=== PATIENT | female | born 1990 | race Asian ===

== ENCOUNTER 2017-09-17 04:24 | Emergency (ER) | payer SELFPAY ==
--- NOTE | 2017-09-17 04:33 | PDOC ---
History of Present Illness - General Stated Complaint: WEAKNESS,DIZZINESS Time Seen by Provider: 09/17/17 04:33 History Source: Patient Exam Limitations: Language Barrier - History of Present Illness Initial Comments: 09/17/17 05:22 27 year old female swedish speaking from [place] with no pmhx presented with one week history of N , loss of appetite , light headedness, dizziness, abdominal pain and headache. The patient LMP is , she had positive test as out pt. The abdominal pain is 9/10 bilateral , comes and goes , last 5 min , tearing , associated with nausea and sob, pt feels very fatigue , out of energy , sleeping all the time. The headache is 7/10 , left temporal , pulsating worsen with . going to occipital area. she feel very warm but no fever , she reports joint pain as well. She feel dizzy when she get up as the room is spining around her. she has noticed one brownish discharge since the test. Pt denies any chest pain , palpitating ,urinary symptoms, or leg swelling . 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 FH: DM , DVT with the afther ,Mother with DM, BP Physical Exam: General: Well nourished in NAD Head: NC/At ENT: Corina ,EOMI, dry MM Neck: Supple Lungs: CTA B/L , no accessory muscle use , no wheezes or crackles Abdomen: soft , ND, lower abdomen tenderness, mid epigastric tenderness, tympanic to percussion , normo active BS . Legs: +2 DP, No edema , Neuro" no focal deficit, normal speech, normal gait Skin: warm and dry Work Up: CBC, CMP EKG Serum test UA Trans vaginal US IV fluids 2 L boluses Reglan for nausea Past History - Past Medical History Allergies/Adverse Reactions: Allergies Allergy/AdvReac Type Severity Reaction Status Date / Time No Known Allergies Allergy Verified 09/17/17 04:44 Home Medications: Ambulatory Orders Folic Acid 0.8 mg PO DAILY #180 capsule 09/17/17 Vit 108/Iron/Folic AC [ One Tablet] 1 each PO DAILY 180 Days # 180 tablet 09/17/17 ED Treatment Course - LABORATORY CBC & Chemistry Diagram: 09/17/17 05:17 09/17/17 05:17 *DC/Admit/Observation/Transfer Diagnosis at time of Disposition: Abdominal pain - Discharge Dispostion Disposition: HOME Condition at time of disposition: Good - Prescriptions Prescriptions: Folic Acid 0.8 mg PO DAILY #180 capsule Vit 108/Iron/Folic AC [ One Tablet] 1 each PO DAILY 180 Days # 180 tablet - Referrals Referrals: Huy Gamez MD [Staff Physician] - Martina Goodman MD [Staff Physician] - Ko Dai MD [Staff Physician] - - Patient Instructions Printed Discharge Instructions: Common Discomforts and Bodily Changes During Additional Instructions: Please make a follow up appointment with an hr associate in the next [address] hours[address] Contact information for Dr. Dai has been provided for you. We have also provided a referral to a primary care doctor for your non-obstetric care. Return to the Emergency Department for any new/worsening/concerning symptoms. - Post Discharge Activity
[2017-09-17] MEDS ORDERED: METOCLOPRAMIDE HCL INJECTION 10 MG/2 ML VIAL IVPUSH ONE (05:00)
[2017-09-17] MEDS ORDERED: SODIUM CHLORIDE 1,000 ML IV SCH (05:00)
[2017-09-17] MEDS ORDERED: ACETAMINOPHEN 1000 MG/100 ML VIAL (NON FORMULARY) IVPB ONE (05:00)
[2017-09-17] MEDS ORDERED: SODIUM CHLORIDE 1,000 ML IV STA (05:00)
[2017-09-17] MEDS ORDERED: ACETAMINOPHEN INJECTION 100 ML IVPB ONE (05:27)
[2017-09-17] MEDS ORDERED: METOCLOPRAMIDE HCL INJECTION 10 MG/2 ML VIAL ONE (05:27)
[2017-09-17 05:31] LABS: BASO % 0.7 % (0-2.0); HEMOGLOBIN 13.5 GM/dL (10.7-15.3); MCH 30.3 pg (25.7-33.7); MCHC 33.7 g/dl (32.0-36.0); MEAN CELL VOLUME 89.9 fl (80-96); MONO % 6.8 % (3.8-10.2); NEUT % 63.5 % (42.8-82.8); PLATELET COUNT 248 K/MM3 (134-434); RBC 4.45 M/mm3 (3.60-5.2); RDW 13.1 % (11.6-15.6); WHITE BLOOD COUNT 8.2 K/mm3 (4.0-10.0)
[2017-09-17 05:32] LABS: URINE APPEARANCE CLEAR; URINE BILIRUBIN NEGATIVE (<2.0 mg/dL); URINE BLOOD 1+ (NEGATIVE); URINE COLOR STRAW; URINE GLUCOSE (UA) NEGATIVE (NEGATIVE); URINE KETONE NEGATIVE (NEGATIVE); URINE LEUK ESTERASE NEGATIVE (NEGATIVE); URINE NITRITE NEGATIVE (NEGATIVE); URINE PROTEIN NEGATIVE (NEGATIVE); URINE UROBILINOGEN NEGATIVE mg/dL (0.2-1.0)
[2017-09-17 06:07] LABS: ANION GAP 12 (8-16); BILIRUBIN,TOTAL 0.6 mg/dL (0.2-1.0); BLOOD UREA NITROGEN 11 mg/dL (7-18); CALCIUM 8.7 mg/dL (8.5-10.1); CHLORIDE 101 mmol/L (98-107); CO2 25 mmol/L (21-32); CREATININE 0.5 mg/dL (0.55-1.02); GLUCOSE,RANDOM 84 mg/dL (74-106); LIPASE 141 U/L (73-393); POTASSIUM 3.7 mmol/L (3.5-5.1); SGOT/AST 15 U/L (15-37); SGPT/ALT 21 U/L (12-78); SODIUM 138 mmol/L (136-145); TOT PROT 7.3 g/dl (6.4-8.2)
[2017-09-17 06:08] LABS: ALK PHOS 36 U/L (45-117)
--- NOTE | 2017-09-17 06:36 | PDOC ---
Attending Attestation - Resident Resident Name: Geoff Child - ED Attending Attestation I have performed the following: I have examined & evaluated the patient, The case was reviewed & discussed with the resident, I agree w/resident's findings & plan, Exceptions are as noted - HPI HPI: 09/17/17 06:31 Ms Woods is a 27 yo F presenting to the ER due to nausea, vomiting, dizziness, weakness symptoms present intermittently for several days Worse today No vomiting No diarrhea Pt feels weak overall Had test 2 weeks ago it was (+) she has not followed up as of yet No prior pregnancies - Physicial Exam PE: 09/17/17 06:32 RRR CTA Lower abd tenderness to palpation Bilateral lower abdomen but Left > Right (+) voluntary guarding - Medical Decision Making 09/17/17 06:32 27 yo F presenting with nausea, weakness, abd pain DD: Nausea: morning sickness Abdominal pain: Ectopic , torsion, Free pelvic fluid Will do Labs US Tylenol for pain Monitor closely Attempted to call in US Was told that they come in at 7am
--- NOTE | 2017-09-17 07:23 | PDOC ---
*Physical Exam - Vital Signs Last Vital Signs Temp Pulse Resp BP Pulse Ox 98.2 F 80 18 112/60 97 09/17/17 06:56 09/17/17 06:56 09/17/17 06:56 09/17/17 06:56 09/17/17 06:56 - Physical Exam General Appearance: Yes: Nourished, Appropriately Dressed Neck: positive: Trachea midline, Supple Respiratory/Chest: positive: Lungs Clear Cardiovascular: positive: S1, S2 Gastrointestinal/Abdominal: positive: Normal Bowel Sounds, Soft, Hernia, Other ( gravid uterus, fundal height not appreciated) Musculoskeletal: negative: CVA Tenderness (R) Extremity: positive: Normal Capillary Refill, Normal Inspection Integumentary: positive: Normal Color, Dry, Warm Neurologic: positive: Fully Oriented, Alert ED Treatment Course - LABORATORY CBC & Chemistry Diagram: 09/17/17 05:17 09/17/17 05:17 - ADDITIONAL ORDERS Additional order review: Laboratory Results 09/17/17 09/17/17 09/17/17 05:17 05:17 05:17 Sodium 138 Potassium 3.7 Chloride 101 Carbon Dioxide 25 Anion Gap 12 BUN 11 Creatinine 0.5 L Creat Clearance w eGFR > 60 Random Glucose 84 Calcium 8.7 Total Bilirubin 0.6 AST 15 ALT 21 Alkaline Phosphatase 36 L Total Protein 7.3 Albumin 4.0 Lipase 141 Beta HCG, Quant 00608.5 Urine Color Straw Urine Appearance Clear Urine pH 5.0 Ur Specific [place] 1.008 Urine Protein Negative Urine Glucose (UA) Negative Urine Ketones Negative Urine Blood 1+ H Urine Nitrite Negative Urine Bilirubin Negative Urine Urobilinogen Negative Ur Leukocyte Esterase Negative 09/17/17 05:17 RBC 4.45 MCV 89.9 MCHC 33.7 RDW 13.1 MPV 9.0 Neutrophils % 63.5 Lymphocytes % 28.0 Monocytes % 6.8 Eosinophils % 1.0 Basophils % 0.7 - Medications Given in the ED: ED Medications Discontinued Medications Generic Name Dose Route Start Last Admin Trade Name Freq PRN Reason Stop Dose Admin Acetaminophen 1,000 mg 09/17/17 05:00 09/17/17 05:36 Ofirmev Injection - IVPB 09/17/17 05:01 1,000 mg ONCE ONE Administration Sodium Chloride 1,000 mls @ 1,000 mls/hr 09/17/17 05:00 09/17/17 05:36 Normal Saline - IV 09/17/17 05:59 1,000 mls/hr ASDIR STA Administration Metoclopramide HCl 10 mg 09/17/17 05:00 09/17/17 05:36 Reglan Injection - IVPUSH 09/17/17 05:01 10 mg ONCE ONE Administration Medical Decision Making - Medical Decision Making 09/17/17 07:16 Patient signed out by Dr. Child (Resident) and Dr. Durant (Attending) 27 y.o. @ female at estimated 5 weeks gestation with positive home test, limited pre-reynold care presents with 1 week h/o abdominal cramping, vaginal spotting. Bedside U/S shows IUP with no free fluid. Formal TVUS pending. 09/17/17 08:25 UA (-) protein, (+ 1) blood, (-) leukocyte esterase, (-) WBC 09/17/17 09:41 TVUS shows gestational sac 5 weeks 4 days; no pole c/w gestational age. Abdominal U/S shows possible hepatic steatosis -- likely fatty liver of . Clinical w/u has ruled out SAB, Ectopic , patient will require repeat TVUS and B-HCG in 48-72 hours. 09/17/17 18:05 Patient and patient's counseled to f/u with referred OB-PCA. Return precautions and discharged home. 09/17/17 18:08 I discussed the physical exam findings, ancillary test results and final diagnoses with the patient. I answered all of the patient's questions. The patient was satisfied with the care received and felt comfortable with the discharge plan and treatment plan. The patient will return to the Emergency Department with any new, persistent or worsening symptoms. *DC/Admit/Observation/Transfer Diagnosis at time of Disposition: Abdominal pain - Discharge Dispostion Disposition: HOME Condition at time of disposition: Good Admit: No - Prescriptions Prescriptions: Folic Acid 0.8 mg PO DAILY #180 capsule Vit 108/Iron/Folic AC [ One Tablet] 1 each PO DAILY 180 Days # 180 tablet - Referrals Referrals: Huy Gamez MD [Staff Physician] - Martina Goodman MD [Staff Physician] - Ko Dai MD [Staff Physician] - - Patient Instructions Printed Discharge Instructions: Common Discomforts and Bodily Changes During Additional Instructions: Please make a follow up appointment with an dairy farmworker in the next [address] hours[address] Contact information for Dr. Dai has been provided for you. We have also provided a referral to a primary care doctor for your non-obstetric care. Return to the Emergency Department for any new/worsening/concerning symptoms. - Post Discharge Activity
[2017-09-17 07:57] LABS: EPI CELLS FEW /HPF (FEW)
[2017-09-17 09:52] VITALS: BP 115/67; PULSE 67; TEMP 98.7
--- NOTE | 2017-09-17 16:59 | EKG ---
Test Reason : Blood Pressure : / mmHG Vent. Rate : 066 BPM Atrial Rate : 066 BPM P-R Int : 160 ms QRS Dur : 090 ms QT Int : 414 ms P-R-T Axes : 051 -06 038 degrees QTc Int : 434 ms NORMAL SINUS RHYTHM NORMAL ECG NO PREVIOUS ECGS AVAILABLE Confirmed by MD Lukas, Hamilton ([id number]) on 09/17/2017 4:58:37 PM Referred By: Confirmed By:Hamilton Gaytan MD
== END 2017-09-17 09:55 | disposition home or self-care (01) ==
LOC: JER 04:24
PROC: 3E033GC Introduction of Other Therapeutic Substance into Peripheral Vein, Percutaneous Approach (ICD-10-PCS; principal; 2017-09-17)
PROC: 3E033NZ Introduction of Analgesics, Hypnotics, Sedatives into Peripheral Vein, Percutaneous Approach (ICD-10-PCS; 2017-09-17)
DX: O26.891 Other specified pregnancy related conditions, first trimester (principal); O21.0 Mild hyperemesis gravidarum; Z3A.01 Less than 8 weeks gestation of pregnancy
CPT/HCPCS: 36415; 76705-TC; 76817-TC; 80053; 81003; 81015; 83690; 84702; 85025; 93005; 93010; 99284-25; J0131; J7030

== ENCOUNTER 2018-05-20 12:55 | Inpatient (IN) | payer OTHER ==
[2018-05-20 13:51] VITALS: BMI 28.3
[2018-05-20] MEDS ORDERED: BUTORPHANOL TARTRATE 1 MG/ML VIAL IVPB ONE (15:02)
[2018-05-20] MEDS ORDERED: PROMETHAZINE HCL 25 MG/1 ML VIAL IVPUSH ONE (15:02)
[2018-05-20] MEDS ORDERED: SODIUM PHOSPHATE/NA BIPHOS 133 ML ENEMA PR ONE (15:05)
--- NOTE | 2018-05-20 15:09 | HP ---
Past Medical History - Primary Care Physician PCP:: Martina Goodman - Admission Chief Complaint: 28 yrs 40.1 weeks iup , for induction of labor. h/o sono done on 05/09/18 is reported as 38.4 weeks,Vx, Ant Placenta, GANGA-12.3cm, efw 9'2 "-4130gm( 96%tile) , Macrosomia suspected .. BPP 01/29 . large for dates History of Present Illness: PNC at , [facility] wt gain 31lbs Serial sono for growth were done by MFM , noted. NT screen , AFP screen neg panel 02/04/18 : APos, Rubella immune, Rpr nr, Hbsag neg, Sickle neg, Hiv nr , CF screen neg, Lead neg 01/23/2018 : Pngt 138, Quantiferon neg , , Rpr nr, 04/24/2018 h/h12.2/38.0, plt 187. 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 Weeks Gestation by Dates: 40.1 ...EDC by Dates: 05/19/18 ...EDC by Sono: 05/19/18 Heme/Onc: No: Anemia Infectious Disease: No: HIV, STD's, Tuberculosis Psych: No: Addictions, Anxiety, Bipolar, Depression, Panic, Psychosis, Schizophrenia, Other - Past Surgical History Past Surgical History: Yes: Tonsillectomy (in child camacho) Hx Myomectomy: No Hx Transabdominal Cerclage: No Additional Surgical History: female circumcision - Smoking History Smoking history: Never smoked Have you smoked in the past 12 months: No - Alcohol/Substance Use Hx Alcohol Use: No History of Substance Use: reports: None Home Medications - Allergies Allergies/Adverse Reactions: Allergies Allergy/AdvReac Type Severity Reaction Status Date / Time No Known Allergies Allergy Verified 05/09/18 13:01 - Home Medications Home Medications: Ambulatory Orders Vit 108/Iron/Folic AC [ One Tablet] 1 each PO DAILY 180 Days # 180 tablet 09/17/17 Ferrous Sulfate [Iron] 325 mg PO DAILY 05/09/18 Ranitidine HCl [Zantac 75] 75 mg PO DAILY 05/09/18 Physical Exam - Maternity Vital Signs: Vital Signs Temperature 98.3 F 05/20/18 14:00 Pulse Rate 100 H 05/20/18 14:00 Respiratory Rate 20 05/20/18 14:00 Blood Pressure 138/84 05/20/18 14:00 O2 Sat by Pulse Oximetry (%) Selected Entries 05/20/18 13:29 Weight 170 lb Constitutional: Yes: Well Nourished, No Distress, Anxious Eyes: Yes: WNL HENT: Yes: WNL, Normocephalic Neck: Yes: WNL Cardiovascular: Yes: WNL, Regular Rate and Rhythm Lungs: Clear to auscultation Breast(s): Yes: WNL - Abdominal Exam/OB Fundal Height: 40 Number of Fetuses: Single Presentation: Vertex Contractions: No Monitor Mode: External Heart Rate (range): 140 Heart Rate Location: [facility] Category: I Accelerations: Uniform Decelerations: None - Vaginal Exam/OB Vaginal Bleediing: No Speculum Exam: No Dilatation (cm): close Effacement (%): 50 Amniotic Membrane Status: Intact Presentation: Vertex/Position Station: -3 - Physical Exam Musculoskeletal: Yes: WNL Extremities: Yes: WNL. No: Calf Tenderness Edema: Yes Edema: LLE: 1+, RLE: 1+ Deep Tendon Reflex Grade: Normal +2 ...Motor Strength: WNL Psychiatric: Yes: WNL, Alert, Oriented - Labs Lab Results: Laboratory Tests 05/20/18 05/20/18 05/20/18 14:30 14:30 14:30 WBC 7.1 Hgb 13.7 Hct 41.2 Plt Count 131 L D PT with INR 11.20 INR 0.95 PTT (Actin FS) 29.0 Sodium 135 L Potassium 3.6 Chloride 104 Carbon Dioxide 23 BUN 9 Creatinine 0.5 L Random Glucose 107 H Calcium 8.7 Blood Type Antibody Screen 05/20/18 14:30 WBC Hgb Hct Plt Count PT with INR INR PTT (Actin FS) Sodium Potassium Chloride Carbon Dioxide BUN Creatinine Random Glucose Calcium Blood Type A POSITIVE Antibody Screen Negative Problem List - Problems (1) Post-term , 40-42 weeks of gestation Code(s): O48.0 - POST-TERM (2) Encounter for elective induction of labor Code(s): Z34.90 - ENCNTR FOR SUPRVSN OF NORMAL , UNSP, UNSP TRIMESTER (3) Macrosomia affecting management of mother in third trimester, single gestation Code(s): O36.63X0 - MATERNAL CARE FOR EXCESS GROWTH, THIRD TRIMESTER, UNSP (4) Macrosomia affecting management of mother in third trimester Code(s): O36.63X0 - MATERNAL CARE FOR EXCESS GROWTH, THIRD TRIMESTER, UNSP Assessment/Plan 28 yrs , 40.1 weeks , suspected macrosomia , admitted for induction of labor Cervidil inserted at 3.15 PM 05/20/18. Trial vaginal delivery .
[2018-05-20] MEDS ORDERED: DEXTROSE 5%-LACTATED RINGERS 1,000 ML IV SCH (15:15)
[2018-05-20 15:32] LABS: BASO % 0.2 % (0-2.0); EOS % 0.5 % (0-4.5); HEMATOCRIT 41.2 % (32.4-45.2); HEMOGLOBIN 13.7 GM/dL (10.7-15.3); LYMPH % 18.2 % (8-40); MCH 30.4 pg (25.7-33.7); MCHC 33.2 g/dl (32.0-36.0); MEAN CELL VOLUME 91.4 fl (80-96); MEAN PLT VOLUME 10.1 fl (7.5-11.1); MONO % 6.3 % (3.8-10.2); NEUT % 74.8 % (42.8-82.8); PLATELET COUNT 131 K/MM3 (134-434); RDW 13.2 % (11.6-15.6); WHITE BLOOD COUNT 7.1 K/mm3 (4.0-10.0)
[2018-05-20 15:49] LABS: INR 0.95 (0.83-1.09); PROTHROMBIN TIME (PATIENT) 11.2 SEC (9.7-13.0)
[2018-05-20] MEDS ORDERED: DINOPROSTONE 10 MG VAGINAL SUPPOSITORY VG ONE (16:00)
[2018-05-20 16:07] LABS: ANION GAP 8 MMOL/L (8-16); BLOOD UREA NITROGEN 9 mg/dL (7-18); CALCIUM 8.7 mg/dL (8.5-10.1); CHLORIDE 104 mmol/L (98-107); CO2 23 mmol/L (21-32); CREATININE 0.5 mg/dL (0.55-1.3); GLUCOSE,RANDOM 107 mg/dL (74-106); POTASSIUM 3.6 mmol/L (3.5-5.1); SODIUM 135 mmol/L (136-145)
[2018-05-20] MEDS ORDERED: BUTORPHANOL TARTRATE 1 MG/ML VIAL ONE ×2 (17:35)
[2018-05-20] MEDS ORDERED: PROMETHAZINE HCL 25 MG/1 ML VIAL ONE (17:35)
[2018-05-20] MEDS ORDERED: ELECTROLYTE-148 SOLN 1,000 ML IV SCH (20:15)
--- NOTE | 2018-05-20 20:16 | PN ---
Progress Note (short form) - Note Progress Note: cervidil was inserted at 3.15 PM pt started having UC since 3.50 Pm , Pattern of uc were 1-1.5-2 min , lasting 20-30, 40 sec FHR 140 bpm cat-1 pt was unable to tolerate uc , crying .c/o pain & backache . IV fluids , started at 4.00 pm 5.40 PM Iv stadol 2 mg + Phenrgan 25 mg ivpb stat was given. UC continued same pattern, sometimes irritablity pattern , FHR cat-1 8.00 PM int os 2-3 cm/Ext os 3-4 cm /70%/NH vx -3/-2 Plan epidural labor analgesia Selected Entries 05/20/ 18:00 Temperature 99.0 F Pulse Rate 109 H Blood Pressure 127/61 Problem List - Problems (1) Post-term , 40-42 weeks of gestation Code(s): O48.0 - POST-TERM (2) Encounter for elective induction of labor Code(s): Z34.90 - ENCNTR FOR SUPRVSN OF NORMAL , UNSP, UNSP TRIMESTER (3) Macrosomia affecting management of mother in third trimester, single gestation Code(s): O36.63X0 - MATERNAL CARE FOR EXCESS GROWTH, THIRD TRIMESTER, UNSP (4) Macrosomia affecting management of mother in third trimester Code(s): O36.63X0 - MATERNAL CARE FOR EXCESS GROWTH, THIRD TRIMESTER, UNSP
[2018-05-20] MEDS ORDERED: FENTANYL/BUPIVACAINE/NS/PF - PCEA - 50 ML DISP.SYRIN EP ONE (20:24)
[2018-05-20] MEDS ORDERED: BUPIVACAINE HCL/PF 0.25% (2.5MG/ML) 10 ML VIAL ONE (20:25)
[2018-05-20] MEDS ORDERED: OXYTOCIN 20 UNITS in 0.9% NS 20 UNIT/1,000 ML INFUS.BAG IV ONE (21:43)
[2018-05-20] MEDS ORDERED: CITRIC ACID/SODIUM CITRATE 30 ML UNIT-DOSE CUP PO ONE (21:45)
--- NOTE | 2018-05-20 21:45 | PN ---
Progress Note (short form) - Note Progress Note: Anesthesiologist Dr Robledo 8.20 PM came to give epidural labor analgesia 8.[address] Robledo called me up & told , he tried but patient was moving , uncontrollable, hence he did not feel safe to continue epidural insertion attempt Pt screaming & crying , c/o headache , very anxious, BP 158/98 9.00PM cervidil removed Pt refuses to continue trial of labor for vaginal delivery , she requests for delivery by C/section I spoke to her & her , offered to leave alone, let labor progress naturally , Stadol + phenrgan can be repeated again for labor analgesia patient absolutely not in favor of vaginal delivery, she states she has big baby , she does not want to try . 930 pm patient is calm. irregular uc seen , fhr 145 cat-1 Temp 98.7, Pulse 91/min, BP 132/81 Imp ; Postterm 40.1 weeks, Suspected Macrosomia , Failed Induction of labor, requests for c/section Plan Delivery by Primary LFTC/section Problem List - Problems (1) Post-term , 40-42 weeks of gestation Code(s): O48.0 - POST-TERM (2) Encounter for elective induction of labor Code(s): Z34.90 - ENCNTR FOR SUPRVSN OF NORMAL , UNSP, UNSP TRIMESTER (3) Macrosomia affecting management of mother in third trimester, single gestation Code(s): O36.63X0 - MATERNAL CARE FOR EXCESS GROWTH, THIRD TRIMESTER, UNSP (4) Macrosomia affecting management of mother in third trimester Code(s): O36.63X0 - MATERNAL CARE FOR EXCESS GROWTH, THIRD TRIMESTER, UNSP
[2018-05-20] MEDS ORDERED: morphine SULFATE/Preservative Free 0.5 MG/ML (1cc Syringe) ONE (22:05)
[2018-05-20] MEDS ORDERED: ceFAZolin SODIUM 1 GM VIAL ONE ×2 (22:23)
[2018-05-20] MEDS ORDERED: ONDANSETRON 4 MG/2 ML VIAL IVPUSH PRN (22:24)
[2018-05-20] MEDS ORDERED: OXYTOCIN 10 UNITS/ML VIAL ONE ×2 (23:17)
[2018-05-20] MEDS ORDERED: oxyCODONE HCL 5 MG TABLET PO PRN (23:17)
[2018-05-20] MEDS ORDERED: METHYLERGONOVINE MALEATE 0.2 MG/1 ML AMP IM PRN (23:17)
[2018-05-20] MEDS: OXYTOCIN 20 UNITS in 0.9% NS 20 UNIT/1,000 ML INFUS.BAG IV SCH (23:30)
--- NOTE | 2018-05-20 23:38 | PN ---
Delivery - Delivery Section: Primary, Low Flap Transverse (indication postterm ( 40.1 weeks), macrosomia, failed induction of labor) Type of Anesthesia: Spinal EBL (cc): 1,200 (arzate output 150 ml vipin color ) Delivery, Single - Stages of Labor Date 1st Stage Initiatied: 05/20/18 Time 1st Stage Initiated: 15:50 Date of Delivery: 05/20/18 Time of Delivery: 22:28 Date Placenta Delivered: 05/20/18 Time Placenta Delivered: 22:30 Placenta: Yes: Spontaneous, Uterine Exploration - Condition of Infant Biological Inspector/Countersinker Balance Screw Hole Present: Yes Name: Cooper Ott Infant Gender: Male Weight: 9 lb 14 oz Position: Left, OP Total Hours ROM (Hrs/Mins): 3 min - 1 Minute Total Score: 9 5 Minutes Total Score: 9 - Feeding Plan Initial Plan: Exclusive throughout hospitalization Remarks - Remarks Remarks: 28 yrs , 40.1 weeks admitted for induction of labor due to suspected macrosomia GBS neg pnc at [address] [place] [address] 05/20/18 3.15 PM cervidil insertion stadol + phenrgan for labor analgesia failed attempt at epidural labor analgesia . 05/20/18-9.00 PM cervidil removed . patient refused to continue trial of labor . Intraop course uneventful
--- NOTE | 2018-05-20 23:44 | OP ---
Operative Note - Note: Operative Date: 05/20/18 Pre-Operative Diagnosis: postterm pregn (40.1 ) weeks, macrosomia, failed induction , requests for c/section Operation: Primary LowFlap Transverse C/section Findings: 10.28 PM Baby Boy , LOP position, 9/9, Wt 9'14", Ht 21" Both tubes & ovaries normal uterine atony immediate after delivery of baby was noted Director Of Physician Practices Dr Tru Gamboa was present in the room Surgeon: Martina Goodman Executive Services Administrator: Salvador López Anesthesiologist/FINANCE AND ADMINISTRATION MANAGER: Kade Robledo Anesthesia: Spinal Specimens Removed: cord segment for cord blood gas. cord blood. placenta Estimated Blood Loss (mls): 1,200 Drains, Volume Out (mls): 150 (arzate urine vipin color ) Fluid Volume Replaced (mls): 1,500 (Iv ancef 2 gm intraop )
[2018-05-20 23:54] LABS: ARTERIAL BLD GAS O2 SATURATION 13.6 % (90-98.9); ARTERIAL BLOOD GAS BASE EXCESS -0.5 meq/l (-2-2); ARTERIAL BLOOD GAS PO2 13.3 mmHg (80-100); ARTERIAL BLOOD GAS pH 7.27 (7.35-7.45)
[2018-05-20 23:57] LABS: VENOUS PC02 46.6 mmHg (38-52); VENOUS PH 7.35 (7.32-7.42)
[2018-05-20 23:58] LABS: VENOUS PO2 24.9 mmHg (28-48)
[2018-05-21 00:02] LABS: ARTERIAL BLOOD GAS PCO2 61.8 mmHg (35-45)
[2018-05-21] MEDS ORDERED: OXYTOCIN 20 UNITS in 0.9% NS 20 UNIT/1,000 ML INFUS.BAG IV ONE (00:07)
[2018-05-21] MEDS: OXYTOCIN 20 UNITS in 0.9% NS 20 UNIT/1,000 ML INFUS.BAG IV SCH (00:10)
[2018-05-21] MEDS ORDERED: IBUPROFEN 800 MG/8 ML IJ IVPB ONE (00:36)
[2018-05-21] MEDS: IBUPROFEN 800 MG/8 ML IJ IVPB PRN ×2 (00:47→08:34)
[2018-05-21] MEDS ORDERED: CARBOPROST TROMETHAMINE 250 MCG/ML AMPUL IM ONE (02:14)
[2018-05-21] MEDS ORDERED: oxyCODONE HCL 5 MG TABLET ONE (02:21)
--- NOTE | 2018-05-21 02:23 | PN ---
Progress Note (short form) - Note Progress Note: 2.15 AM , nurse called me to state pt is bleeding, trickling in spite of giving Methergine 0.2 mg IM at 1.30 AM I saw chucks were saturated, blood clots at introitus ut just below umblicus , appered to be firm Vaginal exam done , with beatadine vagina was full of blood clots, os was open clots were evacuated , approx 200 ml blood clots ut was empty now bimanual massage was given. IM Hemabate 250 mcg stat given. BP 139/76 mmhg , Pulse 90/min . Plan keep close observation Problem List - Problems (1) Post-term , 40-42 weeks of gestation Code(s): O48.0 - POST-TERM (2) Encounter for elective induction of labor Code(s): Z34.90 - ENCNTR FOR SUPRVSN OF NORMAL , UNSP, UNSP TRIMESTER (3) Macrosomia affecting management of mother in third trimester, single gestation Code(s): O36.63X0 - MATERNAL CARE FOR EXCESS GROWTH, THIRD TRIMESTER, UNSP (4) Macrosomia affecting management of mother in third trimester Code(s): O36.63X0 - MATERNAL CARE FOR EXCESS GROWTH, THIRD TRIMESTER, UNSP
[2018-05-21] MEDS: oxyCODONE HCL 5 MG TABLET PO PRN ×2 (02:27→14:31)
[2018-05-21] MEDS: CEFAZOLIN 1 GM in DEXTROSE 5%-WATER - 50 ML IVPB SCH ×3 (03:03→17:33)
[2018-05-21 08:18] LABS: BASO % 0.3 % (0-2.0); EOS % 0.1 % (0-4.5); HEMATOCRIT 31.3 % (32.4-45.2); HEMOGLOBIN 11.5 GM/dL (10.7-15.3); LYMPH % 10.9 % (8-40); MCHC 36.7 g/dl (32.0-36.0); MEAN CELL VOLUME 89.9 fl (80-96); MEAN PLT VOLUME 10.5 fl (7.5-11.1); MONO % 7.8 % (3.8-10.2); NEUT % 80.9 % (42.8-82.8); PLATELET COUNT 135 K/MM3 (134-434); RBC 3.48 M/mm3 (3.60-5.2); WHITE BLOOD COUNT 11.5 K/mm3 (4.0-10.0)
[2018-05-21] MEDS: FERROUS SO4 325 MG TABLET (FP) PO SCH ×2 (08:32→17:35)
--- NOTE | 2018-05-21 09:16 | OP ---
DATE OF OPERATION: 05/20/2018 PREOPERATIVE DIAGNOSIS: Post-term at 41 weeks, macrosomia, failed induction of labor, request for section. OPERATION: Primary low transverse section. SURGEON: Martina Goodman MD PERFUMER SURGEON: TAVO Simmons ANESTHESIOLOGIST: Kade Robledo MD REFRIGERATOR REPAIRMAN: Cooper Ruiz ____ ANESTHESIA: Spinal. FINDINGS: This is a 28-year-old, 40.1 weeks' who was diagnosed with macrosomia by the sonogram. Suspected 9.2 ounce baby on 2 week ago sonogram. Patient was induced with Cervidil. She went into labor. She had contractions every 1-2 minutes after the Cervidil insertion. Patient was very intolerant to the pain. She received Stadol and Phenergan. Two hours after the Cervidil insertion, the patient continued to have a similar pattern of contractions. heart rate was category 1. She had dilated up to 2-3 cm, so epidural was requested, but attempt at epidural failed. Patient refused to continue induction of labor. Cervidil was removed and she requested section. PROCEDURE: Patient was taken to the operating room table. Abdomen was shaved, prepped and Darnell catheter was placed. A spinal anesthesia was given. She was placed in the supine position. Abdomen was painted and draped in the usual manner. Then, the Pfannenstiel incision was made in the skin and subcutaneous tissue was entered. The anterior rectus sheath was incised transversely. Bleeding points were clamped and cauterized. Rectus muscle was from the rectus sheath. Parietal peritoneum was opened vertically. The lower flap of the bladder peritoneum was incised transversely. The lower uterine segment was incised transversely and extended. The baby boy was delivered at 10:28 p.m. from LOP position. Baby's Apgars were 9 and 9. Cord was clamped and cut. Immediate oral and nasal suction was done on the baby. The [employer] portal consultant was present in the room. Baby's weight was 9 pounds 14 ounces. Cord blood was collected. Placenta was completely removed with membranes. Uterine cavity was clean. The uterus was soft. Atony was noted. The Pitocin was continued. Uterine incision was closed in 2 layers. The first layer was a continuous locking with a Biosyn 0 suture. The second layer was a continuous intermittent locking with a Biosyn 0 suture. Hemostasis was checked and the bladder peritoneum was also closed with a Biosyn 0 suture. Both tubes and ovaries were normal. Irrigation was done. Then the sponge, instrument, and needle counts were correct. Closure of the abdomen was done. Parietal peritoneum was closed with 0 Vicryl suture. Muscles were approximated together with 0 Vicryl interrupted sutures. Then the anterior rectus sheath was closed with 0 Vicryl continuous sutures. Hemostasis was verified. Subcutaneous tissue was approximated with interrupted Vicryl 0 suture. Skin was approximated with remedios. Pressure dressing was given. Blood clots were removed from the vagina. The patient tolerated the procedure well. She was transferred to the recovery room in stable condition. She received IV Ancef 2 g operatively prior to the incision. ESTIMATED BLOOD LOSS: 1200 mL. URINE OUTPUT: 150 mL and was vipin colored. FLUID VOLUME: She received 1500 mL. Lachelle [id number] [id number]
[2018-05-21] MEDS ORDERED: ceFAZolin SODIUM 1 GM VIAL ONE ×2 (09:33→17:26)
[2018-05-21] MEDS ORDERED: DEXTROSE 5%-WATER - 50 ML IVPB ONE ×2 (09:33→17:26)
--- NOTE | 2018-05-21 09:45 | PN ---
Post Progress Note - Subjective Subjective: c/o pain , cramps grade -7/10 bleeding is under control arzate in situ Post Day: 1 Type of Delivery: Primary C/S Vital Signs: Vital Signs Temperature 98.1 F 05/21/18 06:00 Pulse Rate 72 05/21/18 06:00 Respiratory Rate 20 05/21/18 09:00 Blood Pressure 122/66 05/21/18 06:00 O2 Sat by Pulse Oximetry (%) 98 05/21/18 02:00 Breast Exam: Yes: Soft, Other (plans to breast feed). No: Engorged Uterus: Yes: Fundus Firm, Fundus below umbilicus, Non-tender Incision: Yes: Dressing dry and intact, [place] intact. No: Redness, Oozing Abdomen/GI: Yes: Abdomen soft, Abdominal Distention (midl, gaseous distention , bs active ), Tender, Tolerating PO (clear fluid ). No: Passing flatus Lochia: Yes: Rubra Lochia, amount: Moderate (no clots noted) Extremities: Yes: Calves non-tender (scd in situ ) Perineum: Yes: Intact Activity: Other (pt is not oob yet , arzate drain continuing ) - Labs Labs: CBC WBC 11.5 K/mm3 (4.0-10.0) H 05/21/18 07:10 RBC 3.48 M/mm3 (3.60-5.2) L 05/21/18 07:10 Hgb 11.5 GM/dL (10.7-15.3) 05/21/18 07:10 Hct 31.3 % (32.4-45.2) L D 05/21/18 07:10 MCV 89.9 fl (80-96) 05/21/18 07:10 MCH 33.0 pg (25.7-33.7) 05/21/18 07:10 MCHC 36.7 g/dl (32.0-36.0) H 05/21/18 07:10 RDW 13.0 % (11.6-15.6) 05/21/18 07:10 Plt Count 135 K/MM3 (134-434) 05/21/18 07:10 MPV 10.5 fl (7.5-11.1) 05/21/18 07:10 Absolute Neuts (auto) 9.3 K/mm3 (1.5-8.0) H 05/21/18 07:10 Neutrophils % 80.9 % (42.8-82.8) 05/21/18 07:10 Lymphocytes % 10.9 % (8-40) D 05/21/18 07:10 Monocytes % 7.8 % (3.8-10.2) 05/21/18 07:10 Eosinophils % 0.1 % (0-4.5) 05/21/18 07:10 Basophils % 0.3 % (0-2.0) 05/21/18 07:10 Nucleated RBC % 0 % (0-0) 05/21/18 07:10 Other Findings, Remarks: RS cta output 400 ml documented, now 900ml in arzate bag drained total intake 2100 ml Problem List - Problems (1) Post-term , 40-42 weeks of gestation Code(s): O48.0 - POST-TERM (2) Encounter for elective induction of labor Code(s): Z34.90 - ENCNTR FOR SUPRVSN OF NORMAL , UNSP, UNSP TRIMESTER (3) Macrosomia affecting management of mother in third trimester, single gestation Code(s): O36.63X0 - MATERNAL CARE FOR EXCESS GROWTH, THIRD TRIMESTER, UNSP (4) Failed induction of labor, delivered Code(s): O61.9 - FAILED INDUCTION OF LABOR, UNSPECIFIED (5) Encounter for assessment Code(s): Z39.2 - ENCOUNTER FOR ROUTINE FOLLOW-UP (6) Atonic hemorrhage Code(s): O72.1 - OTHER IMMEDIATE HEMORRHAGE (7) delivery due to maternal disorder, delivered, curr hospitaliz Code(s): O82 - ENCOUNTER FOR DELIVERY WITHOUT INDICATION; O99.89 - OTH DISEASES AND CONDITIONS COMPL PREG/CHLDBRTH Assessment/Plan pt is stable, bleeding underr control. Plan ct post op care encourage deep breathing, ambulation after arzate is taken out extremities isometric ex in bed
[2018-05-21] MEDS: ENOXAPARIN NA (PORCINE) 40 MG/0.4 ML DISP.SYRIN SQ SCH (09:54)
[2018-05-21] MEDS: PRENATAL VITAMINS W/ FOLIC ACID TABLET (FP) PO SCH (09:59)
[2018-05-21] MEDS: SIMETHICONE 80 MG TAB.CHEW (FP) PO PRN ×2 (11:55→18:49)
[2018-05-21] MEDS: ACETAMINOPHEN 325 MG TABLET (FP) PO PRN ×2 (11:55→18:49)
--- NOTE | 2018-05-21 13:46 | PN ---
Progress Note, Physician Chief Complaint: day 1 s/p C/S - Current Medication List Current Medications: Active Medications Acetaminophen (Tylenol -) 650 mg PO Q4H PRN PRN Reason: PAIN LEVEL 1-5 Last Admin: 05/21/18 11:55 Dose: 650 mg Bisacodyl (Dulcolax Suppository -) 10 mg RC PRN PRN PRN Reason: CONSTIPATION Diphenhydramine HCl (Benadryl Injection -) 25 mg IVPUSH Q4H PRN PRN Reason: Pruritis Diphtheria/Tetanus/Acell Pertussis (Boostrix -) 0.5 ml IM .ONCE ONE Stop: 05/22/18 10:01 Enoxaparin Sodium (Lovenox -) 40 mg SQ DAILY [facility] Last Admin: 05/21/18 09:54 Dose: 40 mg Ferrous Sulfate (Feosol -) 325 mg PO BIDWM [facility] Last Admin: 05/21/18 08:32 Dose: Not Given Cefazolin Sodium 1 gm/ (Dextrose) 50 mls @ 100 mls/hr IVPB Q8H-IV [facility] Stop: 05/22/18 01:59 Last Admin: 05/21/18 09:53 Dose: 100 mls/hr Oxytocin/Sodium Chloride (Normal Saline+20 Units Oxytocin -) 20 unit in 1,000 mls @ 125 mls/hr IV ASDIR [facility] Last Admin: 05/21/18 00:10 Dose: 125 mls/hr Ibuprofen (Motrin -) 600 mg PO Q4H PRN PRN Reason: PAIN LEVEL 1-3 Ibuprofen (Caldolor Injection -) 800 mg IVPB Q8H PRN PRN Reason: PAIN LEVEL 1-5 Stop: 05/21/18 23:16 Last Admin: 05/21/18 08:34 Dose: 800 mg Influenza Virus Vaccine Quadrival (Flulaval Quad [id number]) 60 mcg IM .ONCE ONE Stop: 05/23/18 10:01 Methylergonovine Maleate (Methergine Injection -) 0.2 mg IM Q4H PRN PRN Reason: Excessive Bleeding (L&D) Ondansetron HCl (Zofran Injection) 4 mg IVPUSH Q4H PRN PRN Reason: NAUSEA Oxycodone HCl (Roxicodone -) 5 mg PO Q4H PRN PRN Reason: PAIN LEVEL 4 - 6 Last Admin: 05/21/18 02:27 Dose: 5 mg Oxycodone HCl (Roxicodone -) 10 mg PO Q4H PRN PRN Reason: PAIN LEVEL 7 - 10 Multivit/Folic Acid/Iron ( Vitamins (Sjr) -) 1 tab PO DAILY [facility] Last Admin: 05/21/18 09:59 Dose: Not Given Senna/Docusate Sodium (Pericolace -) 2 tablet PO HS PRN PRN Reason: CONSTIPATION Simethicone (Mylicon -) 80 mg PO Q4H PRN PRN Reason: GAS Last Admin: 05/21/18 11:55 Dose: 80 mg - Objective Vital Signs: Vital Signs Temperature 98.3 F 05/21/18 09:39 Pulse Rate 72 05/21/18 09:39 Respiratory Rate 20 05/21/18 12:00 Blood Pressure 120/72 05/21/18 09:39 O2 Sat by Pulse Oximetry (%) 98 05/21/18 02:00 Labs: CBC, BMP 05/21/18 07:10 05/20/18 14:30 INR, PTT INR 0.95 (0.83-1.09) 05/20/18 14:30 Assessment/Plan s/p csection with spinal duramorph. C/o some pain, but controlled with medications. No ABUMAN,back pain, no other anesthetic issues/complications
[2018-05-21] MEDS: IBUPROFEN 600 MG TABLET (FP) PO PRN ×2 (14:32→18:49)
[2018-05-21] MEDS ORDERED: BISACODYL 10 MG SUPP.RECT RC PRN (23:18)
[2018-05-22] MEDS: SENNOSIDES/DOCUSATE COMBO (SENNA PLUS) TABLET (UD) PO PRN ×2 (00:26→20:46)
[2018-05-22] MEDS: oxyCODONE HCL 5 MG TABLET PO PRN ×3 (00:26→14:45)
[2018-05-22] MEDS: SIMETHICONE 80 MG TAB.CHEW (FP) PO PRN ×4 (00:26→20:42)
[2018-05-22] MEDS: IBUPROFEN 600 MG TABLET (FP) PO PRN ×4 (00:27→20:45)
[2018-05-22] MEDS: FERROUS SO4 325 MG TABLET (FP) PO SCH ×2 (08:12→17:06)
[2018-05-22] MEDS: ACETAMINOPHEN 325 MG TABLET (FP) PO PRN ×2 (08:12→20:42)
[2018-05-22] MEDS: ENOXAPARIN NA (PORCINE) 40 MG/0.4 ML DISP.SYRIN SQ SCH (09:28)
[2018-05-22] MEDS: PRENATAL VITAMINS W/ FOLIC ACID TABLET (FP) PO SCH (09:28)
--- NOTE | 2018-05-22 09:43 | PN ---
Post Progress Note Type of Delivery: Primary C/S Vital Signs: Vital Signs Temperature 98.7 F 05/22/18 08:27 Pulse Rate 90 05/22/18 08:27 Respiratory Rate 20 05/22/18 08:27 Blood Pressure 119/62 05/22/18 08:27 O2 Sat by Pulse Oximetry (%) 98 05/21/18 02:00 Uterus: Yes: Fundus below umbilicus Incision: Yes: Dressing dry and intact Abdomen/GI: Yes: Abdomen soft Lochia: Yes: Rubra Lochia, amount: Small Extremities: Yes: Calves non-tender Perineum: Yes: Intact Activity: Ambulating - Labs Labs: CBC WBC 11.5 K/mm3 (4.0-10.0) H 05/21/18 07:10 RBC 3.48 M/mm3 (3.60-5.2) L 05/21/18 07:10 Hgb 11.5 GM/dL (10.7-15.3) 05/21/18 07:10 Hct 31.3 % (32.4-45.2) L D 05/21/18 07:10 MCV 89.9 fl (80-96) 05/21/18 07:10 MCH 33.0 pg (25.7-33.7) 05/21/18 07:10 MCHC 36.7 g/dl (32.0-36.0) H 05/21/18 07:10 RDW 13.0 % (11.6-15.6) 05/21/18 07:10 Plt Count 135 K/MM3 (134-434) 05/21/18 07:10 MPV 10.5 fl (7.5-11.1) 05/21/18 07:10 Absolute Neuts (auto) 9.3 K/mm3 (1.5-8.0) H 05/21/18 07:10 Neutrophils % 80.9 % (42.8-82.8) 05/21/18 07:10 Lymphocytes % 10.9 % (8-40) D 05/21/18 07:10 Monocytes % 7.8 % (3.8-10.2) 05/21/18 07:10 Eosinophils % 0.1 % (0-4.5) 05/21/18 07:10 Basophils % 0.3 % (0-2.0) 05/21/18 07:10 Nucleated RBC % 0 % (0-0) 05/21/18 07:10 Assessment/Plan 28yo s/p PLTCS, POD#2 Routine care care OOB, ambulate D/C to home by POD#4 Mayuri Moran MD
[2018-05-22] MEDS ORDERED: DIPHTH,PERTUSS(ACELL),TET 0.5 ML DISP.SYRIN IM ONE (10:00)
[2018-05-23] MEDS: SIMETHICONE 80 MG TAB.CHEW (FP) PO PRN ×4 (03:56→19:52)
[2018-05-23] MEDS: ACETAMINOPHEN 325 MG TABLET (FP) PO PRN ×3 (03:56→19:52)
[2018-05-23] MEDS: IBUPROFEN 600 MG TABLET (FP) PO PRN ×4 (03:58→19:52)
[2018-05-23 07:23] LABS: BASO % 0.6 % (0-2.0); EOS % 2.2 % (0-4.5); HEMATOCRIT 29.9 % (32.4-45.2); HEMOGLOBIN 9.8 GM/dL (10.7-15.3); LYMPH % 20.9 % (8-40); MCH 30.6 pg (25.7-33.7); MCHC 32.9 g/dl (32.0-36.0); MEAN CELL VOLUME 92.9 fl (80-96); MEAN PLT VOLUME 9.4 fl (7.5-11.1); NEUT % 70.3 % (42.8-82.8); PLATELET COUNT 182 K/MM3 (134-434); RBC 3.21 M/mm3 (3.60-5.2); RDW 13.7 % (11.6-15.6); WHITE BLOOD COUNT 7.3 K/mm3 (4.0-10.0)
--- NOTE | 2018-05-23 08:02 | PN ---
Progress Note (short form) - Note Progress Note: pod 3 s/p c/s doing well, ambulating, voids ok, no excess vaginal bleeding CBC, BMP 05/20/18 14:30 Last Vital Signs Temp Pulse Resp BP Pulse Ox 98.3 F 83 18 128/72 98 05/22/18 22:00 05/22/18 22:00 05/22/18 22:00 05/22/18 22:00 05/21/18 02:00 abdomen soft, no distension, no cva incision dry, clean no calf tenderness plan ambulate, cbc
[2018-05-23] MEDS: FERROUS SO4 325 MG TABLET (FP) PO SCH ×2 (08:10→17:11)
[2018-05-23] MEDS: ENOXAPARIN NA (PORCINE) 40 MG/0.4 ML DISP.SYRIN SQ SCH (09:08)
[2018-05-23] MEDS: PRENATAL VITAMINS W/ FOLIC ACID TABLET (FP) PO SCH (09:08)
[2018-05-23] MEDS ORDERED: FLU VACCINE QUAD 60 MCG/0.5 ML (MDV 18-19) IM ONE (10:00)
[2018-05-23] MEDS: SENNOSIDES/DOCUSATE COMBO (SENNA PLUS) TABLET (UD) PO PRN (19:52)
[2018-05-24] MEDS: IBUPROFEN 600 MG TABLET (FP) PO PRN ×3 (02:45→13:48)
[2018-05-24] MEDS: SIMETHICONE 80 MG TAB.CHEW (FP) PO PRN ×3 (02:45→13:49)
[2018-05-24] MEDS: ACETAMINOPHEN 325 MG TABLET (FP) PO PRN ×3 (02:45→13:49)
[2018-05-24] MEDS: FERROUS SO4 325 MG TABLET (FP) PO SCH (09:00)
[2018-05-24] MEDS: PRENATAL VITAMINS W/ FOLIC ACID TABLET (FP) PO SCH (09:00)
[2018-05-24] MEDS: ENOXAPARIN NA (PORCINE) 40 MG/0.4 ML DISP.SYRIN SQ SCH (09:01)
[2018-05-24 10:53] VITALS: BP 125/72; PULSE 90; TEMP 97.8
--- NOTE | 2018-05-24 14:21 | DS ---
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 Vital Signs: Vital Signs Temperature 97.8 F 05/24/18 10:00 Pulse Rate 90 05/24/18 10:00 Respiratory Rate 16 05/24/18 10:00 Blood Pressure 125/72 05/24/18 10:00 O2 Sat by Pulse Oximetry (%) 98 05/21/18 02:00 Constitutional: Yes: Well Nourished Eyes: Yes: Conjunctiva Clear HENT: Yes: Atraumatic Neck: Yes: Supple Cardiovascular: Yes: Regular Rate and Rhythm Respiratory: Yes: Regular Gastrointestinal: Yes: Normal Bowel Sounds External Genitalia: Yes: Normal Vaginal Exam: Yes: Normal Cervix: Yes: Normal Uterus: Yes: Firm Wound/Incision: Yes: Clean/Dry, Well Approximated Neurological: Yes: Alert, Oriented ...Motor Strength: WNL Psychiatric: Yes: Alert, Oriented Labs: CBC, BMP 05/23/18 06:34 05/20/18 14:30 Delivery - Delivery Section: Primary, Low Flap Transverse (indication postterm ( 40.1 weeks), macrosomia, failed induction of labor) Type of Anesthesia: Spinal Episiotomy/Laceration: None EBL (cc): 1,200 Delivery, Single - Stages of Labor Date 1st Stage Initiatied: 05/20/18 Time 1st Stage Initiated: 15:50 Date of Delivery: 05/20/18 Time of Delivery: 22:28 Time Placenta Delivered: 22:30 Placenta: Yes: Spontaneous, Uterine Exploration - 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 Internship Present: Yes Name: David Bucio Infant Gender: Male Weight: 9 lb 14 oz Position: Left, OP Total Hours ROM (Hrs/Mins): 3 min - 1 Minute Total Score: 9 5 Minutes Total Score: 9 - [place] Feeding Plan Initial Plan: Exclusive throughout hospitalization Discharge Summary Reason For Visit: INDUCTION OF LABOR Current Active Problems Atonic hemorrhage (Acute) delivery due to maternal disorder, delivered, curr hospitaliz (Acute) Encounter for elective induction of labor (Acute) Encounter for assessment (Acute) Failed induction of labor, delivered (Acute) Macrosomia affecting management of mother in third trimester, single gestation ( Acute) Post-term , 40-42 weeks of gestation (Acute) Procedures: Principal: Primary Low Transverse Hospital Course: Routine post op care Condition: Stable - Instructions Diet, Activity, Other Instructions: Post Instructions DIET: Continue good diet high in protein, calcium, and iron rich foods. Drink at least eight (8) glasses of water daily in addition to other fluids. ct Regular diet MEDICATIONS: Continue vitamins and iron as previously directed. Motrin and Tylenol may be taken for minor discomfort. ACTIVITY: Mild to moderate exercise may be started in two (2) weeks. Take frequent rest periods. Resume normal activity after six (6) week check up. WOUND CARE OF OPERATIVE SITE: Continue use of perineal bottle until vaginal discharge stops. Keep area clean. Shower daily. Keep abdominal wound dry. Report any drainage or redness to physician. Tub baths, tampons and douches are not permitted for [address] Breast feeding & or Bottle feeding BREAST CARE: (For those that are not ): If engorgement occurs: Wear tight fitting bra. Take Tylenol or Motrin for pain. Apply cold packs (ice in bags to each breast ) FAMILY PLANNING: There are many control alternatives to pursue and they should be discussed at your first office visit. You may resume sexual activity after your six (6) week check up. (Remember, breast feeding is not a contraceptive) NEXT PHYSICIAN APPOINTMENT: Be certain to call for a one (1) week appointment, unless otherwise directed. rtc Saturday for removal of remedios, wound check with [facility] or got to Emergency Dept if you have any of the following: Heavy vaginal bleeding Painful urination Leg pain Unusual odor noted to vaginal bleeding High fever Red streaking noted on breast Regular Diet Follow up on Saturday05/27/2018 at 9AM to have your remedios removed call [facility] for appointment for in 6 weeks. [phone] Referrals: Mayuri Moran MD [Staff Physician] - Disposition: HOME - Home Medications Comprehensive Discharge Medication List: Ambulatory Orders Vit 108/Iron/Folic AC [ One Tablet] 1 each PO DAILY 180 Days # 180 tablet 09/17/17 Ferrous Sulfate [Iron] 325 mg PO DAILY 05/09/18 Ranitidine HCl [Zantac 75] 75 mg PO DAILY 05/09/18 Ibuprofen [Motrin -] 600 mg PO QID PRN #28 tablet 05/22/18 Oxycodone HCl/Acetaminophen [Percocet 5-325 mg Tablet -] 1 - 2 tab PO Q6H PRN # 20 tab MDD 4 05/22/18
--- NOTE | 2018-05-27 16:05 | PATH ---
Surgical Pathology Report Patient Name: JOVANNA PINO [facility]. Rec. #: [id number] /Age/Gender: 1990 (Age: 28) / F Account: [id number] Location: [facility] OBS/ASSOCIATE SALES Taken: 05/20/2018 Received: 05/21/2018 Reported: 05/27/2018 Physicians: Martina Goodman M.D. Specimen(s) Received PLACENTA Clinical History , 40.1 weeks, failed induction, suspected macrosomia Final Diagnosis PLACENTA, DELIVERY: FOCALLY DISRUPTED THIRD TRIMESTER PLACENTA WITH THREE VESSEL UMBILICAL CORD AND UNREMARKABLE PLACENTAL MEMBRANES. Electronically Signed Gabe Garner M.D. Gross Description The specimen is received fresh labeled placenta and is a 619 gram, 19.0 x 17.5 x 2.7 cm. placenta with attached membranes and umbilical cord. The attached membranes are fall, translucent with focal opacities and insert marginally. The umbilical cord measures 20 cm. in length and averages 1.2 cm. in diameter. The cord inserts centrally. No true knots or strictures are identified. Cut surface of the umbilical cord reveals 3 vessels. The surface is summers-blue with minimal fibrin deposition and appropriate caliber vessels. The maternal surface is red-brown with focal defects. Sectioning reveals red-brown, spongy parenchyma. No lesions are identified. Computer Software Engineer sections are submitted in three cassettes as follows: 1- membrane rolls and umbilical cord; 2-3- full thickness sections of placenta. 05/26/2018 [facility]05/26/2018
== END 2018-05-24 15:30 | disposition home or self-care (01) | DRG 540 ==
LOC: JLDR 12:55 → J3W 05-21 01:30
PROVIDERS: ADMIT Obstetrics & Gynecology; ATTEND Obstetrics & Gynecology
PROC: 10D00Z1 Extraction of Products of Conception, Low, Open Approach (ICD-10-PCS; principal; 2018-05-20)
PROC: 3E0P7VZ Introduction of Hormone into Female Reproductive, Via Natural or Artificial Opening (ICD-10-PCS; 2018-05-20)
DX: O48.0 Post-term pregnancy (principal); O72.1 Other immediate postpartum hemorrhage; O36.63X0 Maternal care for excessive fetal growth, third trimester, not applicable or unspecified; O61.0 Failed medical induction of labor; O34.83 Maternal care for other abnormalities of pelvic organs, third trimester; N90.818 Other female genital mutilation status; O26.893 Other specified pregnancy related conditions, third trimester; R51 Headache; K29.70 Gastritis, unspecified, without bleeding; Z3A.40 40 weeks gestation of pregnancy; Z37.0 Single live birth
CPT/HCPCS: 36415; 36600; 80048; 82803; 85025; 85610; 85730; 86593; 86850; 86900; 86901; 88307-TC; 90686; 90715; G0008

== ENCOUNTER 2019-05-18 22:26 | Emergency (ER) | payer OTHER ==
[2019-05-18 22:42] VITALS: BP 166/69; PULSE 87; TEMP 97.9; BMI 26.7
--- NOTE | 2019-05-19 02:12 | PDOC ---
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
[2019-05-19] MEDS ORDERED: ACETAMINOPHEN 1000 MG/100 ML VIAL (NON FORMULARY) IVPB ONE (02:54)
[2019-05-19] MEDS ORDERED: ACETAMINOPHEN INJECTION 100 ML IVPB ONE (02:57)
--- NOTE | 2019-05-19 03:17 | PDOC ---
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 She said when it started it was only small swelling. On the 2nd day, she noted purulent drainage and increasing size. Following the initial drainage, she reports no additional drainage but it has been getting increasingly painful, tender, edematous. She attempted 600mg ibuprofen BID with no pain relief. She also reports nausea due to increased pain but no emesis. Denies fever, chest pain, abd pain, vaginal bleeding, vaginal discharge, hx of UTIs. She also tried an OTC antifungal with no improvement. She denies foul odor. PMHx: as noted above ROS: as noted SHx: Denies tobacco use; no alcohol use; no rec drugs Allergies: NKDA ROS: GENERAL/CONSTITUTIONAL: No fever or chills. No weakness. HEAD, EYES, EARS, NOSE AND THROAT: No change in vision. No ear pain or discharge. No sore throat. CARDIOVASCULAR: No chest pain or shortness of breath RESPIRATORY: No cough, wheezing, or hemoptysis. GASTROINTESTINAL: +nausea; no vomiting, diarrhea or constipation. GENITOURINARY: +dysuria; no frequency, or change in urination. MUSCULOSKELETAL: No joint or muscle swelling or pain. No neck or back pain. SKIN: No rash NEUROLOGIC: No headache, vertigo, loss of consciousness, or change in strength/ sensation. ENDOCRINE: No increased thirst. No abnormal weight change HEMATOLOGIC/LYMPHATIC: No anemia, easy bleeding, or history of blood clots. ALLERGIC/IMMUNOLOGIC: No hives or skin allergy. PE: GENERAL: Awake, alert, and fully oriented, no acute distress HEAD: No signs of trauma, normocephalic, atraumatic EYES: EOMI, sclera anicteric, conjunctiva clear ENT: Auricles normal inspection, hearing grossly normal, nares patent, oropharynx clear without exudates. Moist mucosa NECK: Normal ROM, no lymphadenopathy LUNGS: No increased work of breathing, symmetrical chest rise, clear to auscultation bilaterally, no wheezes, crackles or rhonchi HEART: Regular rate and rhythm, normal S1 and S2, no murmurs, peripheral pulses 2+ and equal bilaterally. ABDOMEN: Soft, nondistended, generalized ttp with mild gaurding, normoactive bowel sounds. No rebound. No masses. BL CVAT : left labia with erythema, edema, fluctuance, and ttp; area on medial aspect with drainage, vaginal canal white drainage and foul odor EXTREMITIES: Normal inspection, Normal range of motion, no edema. No clubbing or cyanosis. NEUROLOGICAL: Cranial nerves II through XII grossly intact. Normal speech, normal gait, no focal sensorimotor deficits SKIN: Warm, Dry, normal turgor, no rashes or lesions noted Past History - Past Medical History Allergies/Adverse Reactions: Allergies Allergy/AdvReac Type Severity Reaction Status Date / Time No Known Allergies Allergy Verified 05/18/19 22:42 Home Medications: Ambulatory Orders Mv-Mn/Iron/FA/Herbal/Digestive [ One Tablet] 1 each PO DAILY 180 Days # 180 tablet 09/17/17 Ferrous Sulfate [Iron] 325 mg PO DAILY 05/09/18 Ranitidine HCl [Zantac 75] 75 mg PO DAILY 05/09/18 Ibuprofen [Motrin -] 600 mg PO QID PRN #28 tablet 05/22/18 Oxycodone HCl/Acetaminophen [Percocet 5-325 mg Tablet -] 1 - 2 tab PO Q6H PRN # 20 tab MDD 4 05/22/18 Ibuprofen [Motrin -] 600 mg PO Q4H PRN #60 tablet 05/24/18 Acetaminophen [Tylenol] 650 mg PO QID #30 tablet 05/19/19 Asthma: No Cancer: No Cardiac Disorders: No COPD: No Diabetes: No HTN: No Seizures: No Thyroid Disease: No - Immunization History Immunization Up to Date: Yes - Psycho Social/Smoking Cessation Hx Smoking History: Never smoked Have you smoked in the past 12 months: No Information on smoking cessation initiated: No Hx Alcohol Use: No Drug/Substance Use Hx: No Hx Substance Use Treatment: No *Physical Exam - Vital Signs Last Vital Signs Temp Pulse Resp BP Pulse Ox 97.9 F 87 18 166/69 100 05/18/19 22:39 05/18/19 22:39 05/18/19 22:39 05/18/19 22:39 05/18/19 22:39 ED Treatment Course - LABORATORY CBC & Chemistry Diagram: 05/19/19 03:08 Medical Decision Making - Medical Decision Making 05/19/19 04:19 29 y/o F with hx of Csx last year and 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 VSS, AF. PE notable for distorted anatomy s/p circumcision as well as significant edema of left labia and fluctuance. Concern for labial abscess vs bartholin cyst -cbc, upreg -contacted Dr Adams from Ob for recs given anatomy; recommends CBC 05/19/19 04:21 CBC 9.8 wnl; Dr Adams recommending DC with followup in clinic in the morning for management UA deferred at this time given drainage will skew results; will treat for UTI and give abx for abscess Patient will receive abx in the ED and followup in clinic tomorrow Discharge - Discharge Information Problems reviewed: Yes Clinical Impression/Diagnosis: Abscess, vagina Condition: Stable Disposition: HOME - Additional Discharge Information Prescriptions: Acetaminophen [Tylenol] 650 mg PO QID #30 tablet - Follow up/Referral Referrals: Martina Goodman MD [Primary Care Provider] - Kendall Adams MD [Staff Physician] - Ko Dai MD [Staff Physician] - - Patient Discharge Instructions Patient Printed Discharge Instructions: DI for Vulvar Abscess Additional Instructions: Please followup with your ObGyn in the morning when the office opens. You may tell the office that you were in the ED and Dr Adams had recommended pain control in the ED and followup in the clinic Please return to the ED if you have worsening symptoms or if you have a fever, changing of abscess skin color, fainting You may take tylenol 650 mg every 6hours for pain control - Post Discharge Activity
[2019-05-19 03:29] LABS: BASO % 0.5 % (0-2.0); EOS % 1.1 % (0-4.5); HEMOGLOBIN 13.1 GM/dL (10.7-15.3); LYMPH % 26.6 % (8-40); MCH 30.2 pg (25.7-33.7); MCHC 33.5 g/dl (32.0-36.0); MONO % 6.2 % (3.8-10.2); NEUT % 65.6 % (42.8-82.8); PLATELET COUNT 234 K/MM3 (134-434); RBC 4.33 M/mm3 (3.60-5.2); RDW 12.9 % (11.6-15.6); WHITE BLOOD COUNT 9.8 K/mm3 (4.0-10.0)
[2019-05-19] MEDS ORDERED: CEPHALEXIN MONOHYDRATE 500 MG CAPSULE (UD) PO ONE (04:37)
[2019-05-19] MEDS ORDERED: SULFAMETHOXAZOLE/TRIMETHOPRIM 800MG/160MG D.S. TABLET PO ONE (04:37)
[2019-05-19] MEDS ORDERED: SULFAMETHOXAZOLE/TRIMETHOPRIM 800MG/160MG D.S. TABLET ONE (04:54)
[2019-05-19] MEDS ORDERED: CEPHALEXIN MONOHYDRATE 500 MG CAPSULE (UD) ONE (04:54)
== END 2019-05-19 05:25 | disposition home or self-care (01) ==
LOC: JER 22:26
PROC: 3E033NZ Introduction of Analgesics, Hypnotics, Sedatives into Peripheral Vein, Percutaneous Approach (ICD-10-PCS; principal; 2019-05-18)
DX: N76.4 Abscess of vulva (principal); N39.0 Urinary tract infection, site not specified
CPT/HCPCS: 36415; 84703; 85025; 99282-25; J0131

== ENCOUNTER 2019-05-20 16:33 | Inpatient (IN) | payer OTHER ==
--- NOTE | 2019-05-20 16:41 | PDOC ---
Rapid Medical Evaluation Chief Complaint: Vaginal Sxs Time Seen by Provider: 05/20/19 16:36 Medical Evaluation: Allergies Allergy/AdvReac Type Severity Reaction Status Date / Time No Known Allergies Allergy Verified 05/18/19 22:42 05/20/19 16:[address] Adams's office for r/o vaginal cellulitis vs nec. fasc. Seen here two days ago for abscess and d/c'd home on abx. Exam: Defer to provider Orders: labs, CT pelvis non-con Pt to proceed to the ER for further evaluation Discharge Disposition - Diagnosis Vaginal pain - Referrals - Patient Instructions - Post Discharge Activity
[2019-05-20 17:00] LABS: BASO % 0.5 % (0-2.0); EOS % 0.4 % (0-4.5); HEMATOCRIT 41.5 % (32.4-45.2); HEMOGLOBIN 13.7 GM/dL (10.7-15.3); MCH 29.4 pg (25.7-33.7); MEAN CELL VOLUME 89.1 fl (80-96); MEAN PLT VOLUME 9.8 fl (7.5-11.1); MONO % 6.3 % (3.8-10.2); NEUT % 77.8 % (42.8-82.8); PLATELET COUNT 247 K/MM3 (134-434); RBC 4.66 M/mm3 (3.60-5.2); RDW 12.8 % (11.6-15.6); WHITE BLOOD COUNT 9.1 K/mm3 (4.0-10.0)
[2019-05-20 17:14] LABS: INR 1.03 (0.83-1.09); PROTHROMBIN TIME (PATIENT) 12.1 SEC (9.7-13.0)
[2019-05-20 17:23] LABS: BILIRUBIN,TOTAL 1.1 mg/dL (0.2-1); BLOOD UREA NITROGEN 13.2 mg/dL (7-18); CALCIUM 9.1 mg/dL (8.5-10.1); CREATININE 0.5 mg/dL (0.55-1.3); POTASSIUM 3.8 mmol/L (3.5-5.1); TOT PROT 7.6 g/dl (6.4-8.2)
[2019-05-20] MEDS ORDERED: morphine CARPU-JECT 4 MG/1 ML DISP.SYRIN IVPUSH ONE ×3 (18:24→23:01)
[2019-05-20] MEDS ORDERED: PIPERACILLIN/TAZOB 3.375 GM 3.375 GM in DEXTROSE 5%-WATER - 50 ML IVPB ONE (18:24)
[2019-05-20] MEDS ORDERED: VANCOMYCIN 1 GM in D5W (PRE-DOCKED) 1,000 MG/250 ML IVPB ONE (18:24)
[2019-05-20] MEDS ORDERED: morphine SULFATE 4 MG/ML VIAL ONE ×3 (18:30→22:42)
[2019-05-20] MEDS ORDERED: VANCOMYCIN 1 GRAM (PRE-DOCKED) 1,000 MG/250 ML BAG IVPB ONE (18:53)
[2019-05-20] MEDS ORDERED: PIPERACILLIN/TAZOB 3.375 GM 3.375 GM/50 ML BAG IVPB ONE (18:53)
--- NOTE | 2019-05-20 18:56 | PDOC ---
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 Adams) for further evaluation of left labial swelling. Pt has had 6 days of increasingly worsening symptoms. States there is pain in the left leg and occasional numbness. Endorses occasional nausea w/o vomiting. Endorses dysuria. Denies f/c , cp/sob. Pt was seen yesterday in this ED and discharged w/ Dr. Adams f/u. There is concern for nec fas vs abscess. Pt c/o severe pain; has tried tylenol and ibuprofen w/o relief. Denies abnormal vaginal discharge or bleeding. NKDA No PCP - drugs, etoh, smoking Past History - Past Medical History Allergies/Adverse Reactions: Allergies Allergy/AdvReac Type Severity Reaction Status Date / Time No Known Allergies Allergy Verified 05/20/19 16:38 Home Medications: Ambulatory Orders Iron,Carb/Vit C/Vit B12/Folic [Iron 100 Plus Tablet] 1 each PO DAILY 05/21/19 Asthma: No Cancer: No Cardiac Disorders: No COPD: No Diabetes: No HTN: No Seizures: No Thyroid Disease: No - Immunization History Immunization Up to Date: Yes - Psycho Social/Smoking Cessation Hx Smoking History: Never smoked Have you smoked in the past 12 months: No Information on smoking cessation initiated: No Hx Alcohol Use: No Drug/Substance Use Hx: No Hx Substance Use Treatment: No Review of Systems - Review of Systems Comments:: 05/24/19 08:32 ROS: CONSTITUTIONAL: Denies F / C HEENT: Denies headache. RESP: Denies SOB CARD: Denies chest pain, palpitations GI: Endorses occasional nausea Denies V / D, abdominal pain, bloody stool, inability to tolerate PO : Endorses labial pain. Endorses dysuria. SKIN: Denies rashes NEURO: Denies numbness, tingling, weakness *Physical Exam - Vital Signs Last Vital Signs Temp Pulse Resp BP Pulse Ox 97.7 F 84 18 127/86 100 05/20/19 16:35 05/20/19 16:35 05/20/19 16:35 05/20/19 16:35 05/20/19 16:35 - Physical Exam 05/24/19 08:32 PE: GEN: Well appearing, NAD, comfortable. AAOx3 HEENT: NC/AT, EOMI, PERRLA. No facial asymmetry. Normal voice. Supple neck w/ FROM. CV: S1/S2, RRR, no m/r/g LUNG: CTAB, no wheezes, crackles, rales, rhonchi. GI: +TTP of the lower quadrants (deep palpation) but soft, nd, +BS, no guarding , no rebound. No masses. Neg CVAT b/l. PELVIC: Left labial swelling w/o erythema. w/o fluctuance or crepitus. +warmth. There was no erythema, warmth, streaking, or extension to the legs. +TTP of the left thigh. Patient unable to tolerate speculum exam. There is white discharge. EXTREMITIES: No LE edema. No obvious deformities of all extremities. SKIN: warm, dry, normal turgor PSYCH: normal mood and affect NEURO: Moving all extremities well. 5/5 LE strength, symmetric sensation. ED Treatment Course - LABORATORY CBC & Chemistry Diagram: 05/23/19 08:05 05/21/19 05:58 - ADDITIONAL ORDERS Additional order review: Laboratory Results 05/20/19 05/20/19 05/20/19 16:52 16:52 16:52 PT with INR 12.10 INR 1.03 Sodium Potassium Chloride Carbon Dioxide Anion Gap BUN Creatinine Est GFR (CKD-EPI)AfAm Est GFR (CKD-EPI)NonAf Random Glucose Calcium Total Bilirubin AST ALT Alkaline Phosphatase Total Protein Albumin Serum , Qual Negative Blood Type A POSITIVE Antibody Screen Negative 05/20/19 16:52 PT with INR INR Sodium 139 Potassium 3.8 Chloride 105 Carbon Dioxide 26 Anion Gap 8 BUN 13.2 Creatinine 0.5 L Est GFR (CKD-EPI)AfAm 151.59 Est GFR (CKD-EPI)NonAf 130.79 Random Glucose 107 H Calcium 9.1 Total Bilirubin 1.1 H AST 12 L ALT 18 Alkaline Phosphatase 53 Total Protein 7.6 Albumin 4.0 Serum , Qual Blood Type Antibody Screen 05/20/19 16:52 RBC 4.66 MCV 89.1 MCHC 33.0 RDW 12.8 MPV 9.8 Neutrophils % 77.8 Lymphocytes % 15.0 D Monocytes % 6.3 Eosinophils % 0.4 Basophils % 0.5 Medical Decision Making - Medical Decision Making 05/20/19 18:26 MDM: 29F sent by HEAD OPERATOR for further evaluation of left labial pain and swelling; abscess vs cellulitis vs nec fas. RME labs sent CT Pelvic w/wo contrast Morphine Vanc Zosyn Admit pending CT results 05/20/19 18:59 pt feels much better s/p pain meds 05/20/19 19:09 signed out to PM team Discharge - Discharge Information Problems reviewed: Yes Clinical Impression/Diagnosis: Vaginal pain, Labial abscess Condition: Stable - Follow up/Referral - Patient Discharge Instructions - Post Discharge Activity
--- NOTE | 2019-05-20 19:11 | PDOC ---
Documentation entered by Mahesh Mancera SCRIBE, acting as scribe for Anahi Srinivasan MD. Anahi Srinivasan MD: This documentation has been prepared by the Calderon rangel Daniel, SCRIBE, under my direction and personally reviewed by me in its entirety. I confirm that the documentation accurately reflects all work, treatment, procedures, and medical decision making performed by me. Attending Attestation - Resident Resident Name: Winston Sousa - ED Attending Attestation I have performed the following: I have examined & evaluated the patient, The case was reviewed & discussed with the resident, I agree w/resident's findings & plan, Exceptions are as noted - HPI HPI: 05/20/19 18:46 29-year-old female with a history of 1 year ago, circumcision as a child presents to the emergency department for vaginal infection. Patient was seen here yesterday for the same, was given IV antibiotics. She followed up with clam shucking machine tender Dr. Chopra today who was concerned about cellulitis versus necrotizing fasciitis and sent the patient to the emergency department for a CT scan. Patient reports the pain began on the left side of her vagina 1 week ago and has progressed. She reports significant redness as well. She reports nausea but no vomiting. Denies any fevers or chills. Has not taken anything other than Tylenol for pain. Denies headache, dizziness, focal weakness or numbness, chest pain, shortness of breath, abdominal pain, urinary symptoms, lower extremity edema. - Physicial Exam PE: 05/20/19 18:53 GENERAL: Awake, alert, and fully oriented, in no acute distress. No toxic HEAD: No signs of trauma EYES: PERRLA, EOMI, sclera anicteric, conjunctiva clear ENT: Auricles normal inspection, hearing grossly normal, nares patent, oropharynx clear without exudates. Moist mucosa NECK: Normal ROM, supple, no lymphadenopathy, JVD, or masses LUNGS: Breath sounds equal, clear to auscultation bilaterally. No wheezes, and no crackles HEART: Regular rate and rhythm, normal S1 and S2, no murmurs, rubs or gallops ABDOMEN: Soft, nontender, normoactive bowel sounds. No guarding, no rebound. No masses : Erythema, edema, induration, and tenderness extending from L labia majora to minora with no area of fluctuance, no drainage. Pt can not tolerate a speculum exam 2/2 pain but upon retracting labia minora out, no obvious extension into vaginal canal. No crepitus. EXTREMITIES: Normal range of motion, no edema. No cords, erythema, or tenderness NEUROLOGICAL: Normal speech, cranial nerves intact, equal strength and sensation b/l SKIN: Warm, Dry, normal turgor, no rashes or lesions noted. = - Medical Decision Making 05/20/19 19:02 29-year-old female presents to the emergency department with vaginal cellulitis , less likely necrotizing fasciitis. Patient has no systemic signs of infection. We will plan for labs, CT scan of the abdomen and pelvis with IV contrast, pain control and reassess. 05/20/19 22:32 CT scan consistent with abscess and surrounding cellulitis. Case discussed with Dr. Dowling from gynecology who evaluated the patient at the bedside. I&D performed at the bedside by Dr. Dowling. Pt required morphine and versed for procedure with about 8cc drainage of purulent fluid. Wound culture sent. Dr. Dowling recommends continuing IV abx, admission Pt has been admitted for further mgmt Case discussed in detail with admitting physician including history, physical exam and ancillary studies. Admitting physician has assumed care for the patient, will follow all pending diagnostics and will complete the evaluation and treatment. Heart Score/ECG Review #1 05/21/19 00:41 Twelve-lead EKG was performed and reviewed by me. Normal sinus rhythm, rate 91. Normal axis. No ST elevations.
--- NOTE | 2019-05-20 19:45 | PDOC ---
*Physical Exam - Vital Signs Last Vital Signs Temp Pulse Resp BP Pulse Ox 97.7 F 84 18 127/86 100 05/20/19 16:35 05/20/19 16:35 05/20/19 16:35 05/20/19 16:35 05/20/19 16:35 ED Treatment Course - LABORATORY CBC & Chemistry Diagram: 05/20/19 16:52 05/20/19 16:52 - ADDITIONAL ORDERS Additional order review: Laboratory Results 05/20/19 05/20/19 05/20/19 16:52 16:52 16:52 PT with INR 12.10 INR 1.03 Sodium Potassium Chloride Carbon Dioxide Anion Gap BUN Creatinine Est GFR (CKD-EPI)AfAm Est GFR (CKD-EPI)NonAf Random Glucose Calcium Total Bilirubin AST ALT Alkaline Phosphatase Total Protein Albumin Serum , Qual Negative Blood Type A POSITIVE Antibody Screen Negative 05/20/19 16:52 PT with INR INR Sodium 139 Potassium 3.8 Chloride 105 Carbon Dioxide 26 Anion Gap 8 BUN 13.2 Creatinine 0.5 L Est GFR (CKD-EPI)AfAm 151.59 Est GFR (CKD-EPI)NonAf 130.79 Random Glucose 107 H Calcium 9.1 Total Bilirubin 1.1 H AST 12 L ALT 18 Alkaline Phosphatase 53 Total Protein 7.6 Albumin 4.0 Serum , Qual Blood Type Antibody Screen 05/20/19 16:52 RBC 4.66 MCV 89.1 MCHC 33.0 RDW 12.8 MPV 9.8 Neutrophils % 77.8 Lymphocytes % 15.0 D Monocytes % 6.3 Eosinophils % 0.4 Basophils % 0.5 - Medications Given in the ED: ED Medications Discontinued Medications Generic Name Dose Route Start Last Admin Trade Name Bamq PRN Reason Stop Dose Admin Morphine Sulfate 4 mg 05/20/19 18:24 05/20/19 18:36 Morphine Injection - IVPUSH 05/20/19 18:25 4 mg ONCE ONE Administration Medical Decision Making - Medical Decision Making 05/20/19 19:44 Received sign out from Dr Sousa. 29yo F hx c/s 1yr ago and circumcision as child sent by Dr Chopra for CT scan for concern for cellulitis vs abscess vs necrotizing fasciitis of labia. Pt with 6 days of swelling and severe pain of L labia with nausea but no other systemic sx of infection. Labs and EKG done without concerning findings. Pending CTAP. Pt seen and assessed at bedside. -CTAP -Pain management -Vanc/Zosyn running -Will call Dr Barajas after CTAP -Dispo: pending w/u 05/20/19 21:28 Rigors, decreased talking, hyperventilating 1hr into vanc administration - sx concerning for panic attack vs Red Man's syndrome vs pain - vanc stopped, IVF started, benadryl and morphine, VSS, afebrile, no airway compromise. Pt returned to baseline in approx 20min. 05/20/19 23:17 CT scan reviewed: consistent with abscess and surrounding cellulitis Dr. Chopra and Dr Dowling called - discussed with Dr Dowling. I&D performed by Dr Dowling, required 2 versed and additional 4 morphine, drained pus and blood. Wound culture sent. Dr Dowling recommends continued vanc/zosyn and admission. Microblogged for admission. Signed out to admitting team. Discharge - Discharge Information Problems reviewed: Yes Clinical Impression/Diagnosis: Vaginal pain, Labial abscess Condition: Stable - Admission Yes - Follow up/Referral - Patient Discharge Instructions - Post Discharge Activity
[2019-05-20] MEDS ORDERED: MIDAZOLAM HCL 2 MG/2 ML SINGLE DOSE VIAL IVPUSH ONE (22:20)
[2019-05-20] MEDS ORDERED: MIDAZOLAM HCL 2 MG/2 ML SINGLE DOSE VIAL ONE (22:23)
[2019-05-21] MEDS ORDERED: ACETAMINOPHEN 325 MG TABLET (FP) PO PRN (00:16)
[2019-05-21] MEDS ORDERED: KETOROLAC TROMETHAMINE 15 MG/ML VIAL IVPUSH PRN (00:42)
--- NOTE | 2019-05-21 01:17 | HP ---
CHIEF COMPLAINT: Vulvar pain PCP: None HISTORY OF PRESENT ILLNESS: 29 y/o female w no PMH c/o of vulvar pain. She states that two weeks ago she changed her genital grooming routine and utilized a Martines sunil instead of her usual razor. A few days after there were usual bumps/razor-burn on the mons pubis but the LEFT labia developed a marble sized, tender nodule. This is the first time this has happened. She states that the nodule progressed to approximately golf-ball size and had associated redness, swelling of surrounding tissue and white discharge, which prompted her to come to the ED on 19 May 2019. She was started on abx and Tylenol and dc with instructions to f/u in clinic. The pain continued to be 10/10 despite adding Ibuprofen to home regimen. She returned to the ED 20 May 2019 and an I&D was performed, which required 2 versed and additional 4 morphine; drained pus and blood and wound culture was sent. During this admission, the patient developed symptoms consistent with allergic reaction. Pt given contrast for ab/pelv CT in afternoon. She was also administered zosyn at 19:10 and vancomycin at 20:56. Shortly after, she experienced scalp pruritis, SOB, and sensation of an itchy throat. Benadryl provided relief of symptoms. She is currently experiencing dysuria and RIGHT lateral back pain but denies fever, vomiting, diarrhea, constipation and chills. The back pain is aching, nonradiating, and reported more as a discomfort. Presently she denies SOB, CP, abdominal pain, altered vision, dizziness, and numbness/tingling. Recent Travel: Denies travel. No sick contacts. No other recent illness. 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, [place]), C- section (2018, [place]) Social History: Smoking: denies Alcohol: denies Drugs: denies Family history: Mother DM Allergies: No Known Allergies Allergy (Verified 05/20/19 16:38) HOME MEDICATIONS: Home Medications Medication Instructions Recorded Mv-Mn/Iron/FA/Herbal/Digestive 1 each PO DAILY 180 Days #180 09/17/17 [ One Tablet] tablet Ferrous Sulfate [Iron] 325 mg PO DAILY 05/09/18 Ranitidine HCl [Zantac 75] 75 mg PO DAILY 05/09/18 Ibuprofen [Motrin -] 600 mg PO QID PRN #28 tablet 05/22/18 Oxycodone HCl/Acetaminophen 1 - 2 tab PO Q6H PRN #20 tab MDD 4 05/22/18 [Percocet 5-325 mg Tablet -] Ibuprofen [Motrin -] 600 mg PO Q4H PRN #60 tablet 05/24/18 Acetaminophen [Tylenol] 650 mg PO QID #30 tablet 05/19/19 REVIEW OF SYSTEMS CONSTITUTIONAL: Absent: fever, chills, diaphoresis, generalized weakness, malaise, loss of appetite, weight change HEENT: Absent: rhinorrhea, nasal congestion, throat pain, throat swelling, difficulty swallowing, mouth swelling, ear pain, eye pain, visual changes CARDIOVASCULAR: Absent: chest pain, syncope, palpitations, irregular heart rate, lightheadedness , peripheral edema RESPIRATORY: Absent: cough, shortness of breath, dyspnea with exertion, orthopnea, wheezing, stridor, hemoptysis GASTROINTESTINAL: Absent: abdominal pain, abdominal distension, nausea, vomiting, diarrhea, constipation, melena, hematochezia GENITOURINARY: Absent: dysuria, frequency, urgency, hesitancy, hematuria, flank pain, genital pain MUSCULOSKELETAL: Absent: myalgia, arthralgia, joint swelling, back pain, neck pain SKIN: Absent: rash, itching, pallor HEMATOLOGIC/IMMUNOLOGIC: Absent: easy bleeding, easy bruising, lymphadenopathy, frequent infections ENDOCRINE: Absent: unexplained weight gain, unexplained weight loss, heat intolerance, cold intolerance NEUROLOGIC: Absent: headache, focal weakness or paresthesias, dizziness, unsteady gait, seizure, mental status changes, bladder or bowel incontinence PSYCHIATRIC: Absent: anxiety, depression, suicidal or homicidal ideation, hallucinations. PHYSICAL EXAMINATION Vital Signs - 24 hr 05/20/19 16:35 Temperature 97.7 F Pulse Rate 84 Respiratory 18 Rate Blood Pressure 127/86 O2 Sat by Pulse 100 Oximetry (%) GENERAL: AOx3, in no acute distress, lethargic. HEAD: NCAT EYES: JENNIFER, EOMI, conjunctiva clear. ENT: Ears normal, nares patent, oropharynx clear without exudates. Moist mucous membranes. NECK: Normal range of motion, supple without lymphadenopathy, JVD, or masses. LUNGS: CTAB. No wheezes, and no crackles. No accessory muscle use. HEART: RRR s1 s2 ABDOMEN: Soft, BS present in all 4 quadrants, non-distended, no JVD, MUSCULOSKELETAL: No bony deformities or tenderness. No CVA tenderness. UPPER EXTREMITIES: 2+ pulses, warm, well-perfused. No cyanosis. No clubbing. No peripheral edema. LOWER EXTREMITIES: 2+ pulses, warm, well-perfused. No calf tenderness. No peripheral edema. NEUROLOGICAL: No focal deficits. Cranial nerves II-XII intact. Normal speech. Gait not appreciated. PSYCHIATRIC: Cooperative. Good eye contact. Appropriate mood and affect. PELVIC EXAM: LEFT labia minora and majora erythematous, edematous, tender and warm to palpation. NO palpable inguinal lymph nodes. Absent clitoral camacho, absent clitoris, healed scar at prepuce. Trimmed pubic hair on mons pubis. No bleeding or dc. No foul smell. SKIN: Warm, dry, normal turgor, no rashes or lesions noted, normal capillary refill. Laboratory Results - last 24 hr 05/20/19 05/20/19 05/20/19 16:52 16:52 16:52 WBC 9.1 RBC 4.66 Hgb 13.7 Hct 41.5 MCV 89.1 MCH 29.4 MCHC 33.0 RDW 12.8 Plt Count 247 MPV 9.8 Absolute Neuts (auto) 7.1 Neutrophils % 77.8 Lymphocytes % 15.0 D Monocytes % 6.3 Eosinophils % 0.4 Basophils % 0.5 Nucleated RBC % 0 PT with INR 12.10 INR 1.03 Sodium 139 Potassium 3.8 Chloride 105 Carbon Dioxide 26 Anion Gap 8 BUN 13.2 Creatinine 0.5 L Est GFR (CKD-EPI)AfAm 151.59 Est GFR (CKD-EPI)NonAf 130.79 Random Glucose 107 H Calcium 9.1 Total Bilirubin 1.1 H AST 12 L ALT 18 Alkaline Phosphatase 53 Total Protein 7.6 Albumin 4.0 Serum , Qual Blood Type Antibody Screen 05/20/19 05/20/19 16:52 16:52 WBC RBC Hgb Hct MCV MCH MCHC RDW Plt Count MPV Absolute Neuts (auto) Neutrophils % Lymphocytes % Monocytes % Eosinophils % Basophils % Nucleated RBC % PT with INR INR Sodium Potassium Chloride Carbon Dioxide Anion Gap BUN Creatinine Est GFR (CKD-EPI)AfAm Est GFR (CKD-EPI)NonAf Random Glucose Calcium Total Bilirubin AST ALT Alkaline Phosphatase Total Protein Albumin Serum , Qual Negative Blood Type A POSITIVE Antibody Screen Negative Ab/pelv CT: 3 x 1.5 x 1.5 rim enhancing fluid collection on LEFT inferior labia (abscess vs infected cyst). 1 x 1 x 0.3 cm pocket of air/gas adjacent to posterior superior border of fluid collection. Subcut. edema. 2.5 cm LEFT ovarian cyst. ASSESSMENT/PLAN: 29 y/o female w no PMH c/o of vaginal pain. H/o of skin trauma given new grooming tools. Significant constitutional signs: nausea and pain. Localized symptoms consistent with infection. NO h/o DM. Positive CT findings (as above). 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 to monitor - Regular diet # DVT prophylaxis - Heparin SQ # Disposition - Admit to med/surg Gomez Barragan MD ATTENDING PHYSICIAN STATEMENT I saw and evaluated the patient. I reviewed the resident's note and discussed the case with the resident. I agree with the resident's findings and plan as documented. SUBJECTIVE: OBJECTIVE: ASSESSMENT AND PLAN:
[2019-05-21] MEDS ORDERED: PIPERACILLIN/TAZOB 3.375 GM 3.375 GM in DEXTROSE 5%-WATER - 50 ML IVPB SCH ×3 (02:00→10:00)
[2019-05-21] MEDS ORDERED: PIPERACILLIN/TAZOB 3.375 GM 3.375 GM/50 ML BAG IVPB ONE (02:02)
--- NOTE | 2019-05-21 02:44 | PN ---
Teaching Attending Note Name of Resident: Gomez Barragan ATTENDING PHYSICIAN STATEMENT I saw and evaluated the patient. I reviewed the resident's note and discussed the case with the resident. I agree with the resident's findings and plan as documented. SUBJECTIVE: 29-year-old woman with a past medical history of 1 year ago, circumcision as child presented to hospital sent from [facility]ICE WAITER[facility]RESS clinic by Dr. Chopra for concern of labial cellulitis. Was seen in the emergency room the day prior and discharged on p.o. antibiotics and RO[facility] SERVICE WAITER/WAITRESS clinic follow-up. Patient reported the pain began in her left labia about 1 week ago. She reported significant redness and pain. Pelvic CT scan showed left labia fluid collection. Dr. Dowling assessed patient and performed I&D with drainage of 8 cc of purulent fluid. Wound cultures were sent. Broad-spectrum antibiotics with vancomycin and Zosyn were ordered. OBJECTIVE: Last Vital Signs Temp Pulse Resp BP Pulse Ox 97.7 F 86 18 128/83 100 05/20/19 16:35 05/21/19 01:21 05/21/19 01:21 05/21/19 01:21 05/21/19 01:21 GENERAL: Well developed, well nourished. Awake and alert. No acute distress. HEENT: Normocephalic, atraumatic. PERRLA, EOMI. No conjunctival pallor. Sclera are non- icteric. Moist mucous membranes. Oropharynx is clear. NECK: Supple. Full ROM. No JVD. Carotid pulses 2+ and symmetric, without bruits. No thyromegaly. No lymphadenopathy. CARDIOVASCULAR: Regular rate and rhythm. No murmurs, rubs, or gallops. Distal pulses are 2+ and symmetric. PULMONARY: No evidence of respiratory distress. Lungs clear to auscultation bilaterally. No wheezing, rales or rhonchi. ABDOMINAL: Soft. Non-tender. Non-distended. No rebound or guarding. No organomegaly. Normoactive bowel sounds. MUSCULOSKELETAL Normal range of motion at all joints. No bony deformities or tenderness. No CVA tenderness. EXTREMITIES: No cyanosis. No clubbing. No edema. No calf tenderness. SKIN: Warm and dry. Normal capillary refill. No rashes. No jaundice. PSYCHIATRIC: Cooperative. Good eye contact. Appropriate mood and affect. CONDEMNATION ENGINEER- left labia swollen, tender Abnormal Lab Results 05/20/19 16:52 Creatinine 0.5 L Random Glucose 107 H Total Bilirubin 1.[address] H [address] of the pelvis reviewed. Showed an approximate 3 x 1.5 x 1.5 rim-enhancing fluid collection seen within the left inferior labia which may represent abscess formation versus infected cyst. Several bilateral nonspecific mildly enlarged inguinal lymph nodes are noted which may be reactive in nature. ASSESSMENT AND PLAN: 29-year-old woman status post left labia abscess drainage with surrounding cellulitis vs infected cyst. Requires IV antibiotics at this time. No systemic signs of infection. Admit to [facility] Continue vancomycin and Zosyn empirically Infectious disease consult for antibiotic approval Follow-up culture from abscess drainage ROOM SERVICE WAITER/WAITRESS follow-up If signs of systemic infection would send peripheral blood cultures ESR and CRP Would send HIV serology if patient agrees Follow-up UA Urine GC/chlamydia NAAT RPR Heparin subcutaneous for DVT prophylaxis
[2019-05-21 03:00] LABS: EPI CELLS 2.8 /HPF (0-5/HPF); HYALINE CASTS 1 /lpf (0-8); URINE APPEARANCE CLEAR; URINE BACTERIA 7.7 /hpf (NEGATIVE); URINE BILIRUBIN NEGATIVE (NEGATIVE); URINE COLOR YELLOW; URINE GLUCOSE (UA) NEGATIVE (NEGATIVE); URINE KETONE NEGATIVE (NEGATIVE); URINE LEUK ESTERASE NEGATIVE (NEGATIVE); URINE NITRITE NEGATIVE (NEGATIVE); URINE PROTEIN NEGATIVE (NEGATIVE); URINE RBC 11 /hpf (0-4); URINE UROBILINOGEN 0.2 mg/dL (0.2-1.0); URINE WBC 4 /hpf (0-5)
[2019-05-21] MEDS ORDERED: ACETAMINOPHEN 325 MG TABLET (FP) ONE (03:44)
--- NOTE | 2019-05-21 04:39 | CON.OBG ---
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 Patient was seen the day prior for the same complaint and was given IV antibiotics. She followed up with counter supply worker Dr. Nav khan who was concerned about cellulitis versus necrotizing fasciitis and sent the patient to the emergency department for a CT scan. Patient reports the pain began on the left side of her vagina 1 week ago and has progressed. She reports significant redness as well. She reports nausea but no vomiting. Denies any fevers or chills. Has not taken anything other than Tylenol for pain. I Dr. Dowling, was called to evaluate patient. I came to see patient; she was in extreme discomfort. After additional morphine and versed, I evaluated the patient. Labia was found to be significantly swollen. The area was cleaned with betadine and a 10cc syringe was used to puncture the labia; 3cc of pus aspirated. Then using an 11-blade, the vulva was incised and drained. Ass / Plan : Left vulva abscess Admit for IV antibiotic Patient may D/C home in 48 hours with PO antibiotic ( Dicloxacillin ) for 10 days. - History Source History Provided By: Family Member Limitations to Obtaining History: No Limitations - Past Medical History Gastrointestinal: Yes: Gastritis (Zantac 150 mg bid) ...: No - Past Surgical History Past Surgical History: Yes: Tonsillectomy (in child camacho) - Alcohol/Substance Use Hx Alcohol Use: No History of Substance Use: reports: None - Smoking History Smoking history: Never smoked Have you smoked in the past 12 months: No Home Medications - Allergies Allergies/Adverse Reactions: Allergies Allergy/AdvReac Type Severity Reaction Status Date / Time No Known Allergies Allergy Verified 05/20/19 16:38 - Home Medications Home Medications: Ambulatory Orders Mv-Mn/Iron/FA/Herbal/Digestive [ One Tablet] 1 each PO DAILY 180 Days # 180 tablet 09/17/17 Ferrous Sulfate [Iron] 325 mg PO DAILY 05/09/18 Ranitidine HCl [Zantac 75] 75 mg PO DAILY 05/09/18 Ibuprofen [Motrin -] 600 mg PO QID PRN #28 tablet 05/22/18 Oxycodone HCl/Acetaminophen [Percocet 5-325 mg Tablet -] 1 - 2 tab PO Q6H PRN # 20 tab MDD 4 05/22/18 Ibuprofen [Motrin -] 600 mg PO Q4H PRN #60 tablet 05/24/18 Acetaminophen [Tylenol] 650 mg PO QID #30 tablet 05/19/19 Physical Exam-FRUIT OR NUT GROWER Vital Signs: Vital Signs Temperature 97.7 F 05/20/19 16:35 Pulse Rate 86 05/21/19 01:21 Respiratory Rate 18 05/21/19 01:21 Blood Pressure 128/83 05/21/19 01:21 O2 Sat by Pulse Oximetry (%) 100 05/21/19 01:21 Labs: CBC, BMP 05/20/19 16:52 05/20/19 16:52
[2019-05-21] MEDS: HEPARIN NA (PORCINE) 5,000 UNITS/ML 1ML VIAL SQ SCH ×2 (06:09→22:30)
[2019-05-21 06:29] LABS: HEMATOCRIT 36.5 % (32.4-45.2); HEMOGLOBIN 12.2 GM/dL (10.7-15.3); MCH 29.8 pg (25.7-33.7); MCHC 33.6 g/dl (32.0-36.0); MEAN CELL VOLUME 88.9 fl (80-96); MEAN PLT VOLUME 9.5 fl (7.5-11.1); PLATELET COUNT 235 K/MM3 (134-434); RDW 12.8 % (11.6-15.6); WHITE BLOOD COUNT 8.7 K/mm3 (4.0-10.0)
[2019-05-21 06:59] LABS: BLOOD UREA NITROGEN 9.8 mg/dL (7-18); CALCIUM 8.4 mg/dL (8.5-10.1); CREATININE 0.8 mg/dL (0.55-1.3); MAGNESIUM 1.9 mg/dL (1.8-2.4); POTASSIUM 3.4 mmol/L (3.5-5.1)
[2019-05-21] MEDS ORDERED: KETOROLAC TROMETHAMINE 15 MG/ML VIAL ONE (07:38)
--- NOTE | 2019-05-21 08:20 | CON.ID ---
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 originally presented on 05/19 with vaginal pain and left labial swelling for four days- d/duane to f/u in gyne clinic given bactrim and keflex in ED started after she trimmed her genital area with a sunil had a lot of pain at home no fevers took ibuprofen seen in gyne clinic and sent to ED pellvic ct scan with left labial abscess seen by gyne and lanced with 3 cc of pus removed vanco/zosyn in ED developed - developed itching of scalp, and facial flushing-?redjasmines-while getting the vancomycin culture sent from ED feels much better now - History Source History Provided By: Patient, Medical Record Limitations to Obtaining History: No Limitations - Past Medical History Gastrointestinal: Yes: Gastritis (Zantac 150 mg bid) ...: No - Past Surgical History Past Surgical History: Yes: , Tonsillectomy (in child camacho) - Alcohol/Substance Use Hx Alcohol Use: No History of Substance Use: reports: None - Smoking History Smoking history: Never smoked Have you smoked in the past 12 months: No - Social History Usual Living Arrangement: With Spouse ADL: Independent Place of : Other ([place]) History of Recent Travel: No (last 2 years ago) Home Medications - Allergies Allergies/Adverse Reactions: Allergies Allergy/AdvReac Type Severity Reaction Status Date / Time No Known Allergies Allergy Verified 05/20/19 16:38 - Home Medications Home Medications: Ambulatory Orders Iron,Carb/Vit C/Vit B12/Folic [Iron 100 Plus Tablet] 1 each PO DAILY 05/21/19 Acetaminophen [Tylenol] 650 mg PO Q6H PRN #20 capsule MDD 5 05/24/19 Amoxicillin/Potassium Clav [Augmentin 500-125 Tablet] 1 each PO Q8H 10 Days #30 tablet MDD 3 05/24/19 Family Medical History Family History: Unremarkable Review of Systems - Review of Systems Constitutional: reports: No Symptoms. denies: Chills, Fever Eyes: reports: No Symptoms HENT: reports: No Symptoms Neck: reports: No Symptoms Cardiovascular: reports: No Symptoms Respiratory: reports: No Symptoms Gastrointestinal: reports: No Symptoms Genitourinary: reports: No Symptoms Physical Exam Vital Signs: Vital Signs Temperature 98.1 F 05/21/19 07:00 Pulse Rate 79 05/21/19 07:00 Respiratory Rate 18 05/21/19 07:00 Blood Pressure 100/57 L 05/21/19 07:00 O2 Sat by Pulse Oximetry (%) 95 05/21/19 07:00 Constitutional: Yes: Well Nourished, No Distress, Calm Eyes: Yes: Conjunctiva Clear HENT: Yes: Atraumatic, Normocephalic Neck: Yes: Supple Cardiovascular: Yes: Regular Rate and Rhythm Respiratory: Yes: Regular, CTA Bilaterally Gastrointestinal: Yes: Normal Bowel Sounds, Soft ...Rectal Exam: Yes: Deferred Renal/: Yes: Other (swellng left labia- twice the size of the right, tender , no drainage noted) Extremities: Yes: WNL Edema: No Wound/Incision: Yes: Other (swellling left labia, no induration, no drainage) Neurological: Yes: Alert, Oriented Labs: CBC, BMP 05/21/19 05:58 05/21/19 05:58 cultures pending Imaging - Results Cat Scan: Report Reviewed Problem List - Problems (1) Labial abscess Code(s): N76.4 - ABSCESS OF VULVA (2) Female circumcision Code(s): N90.810 - FEMALE GENITAL MUTILATION STATUS, UNSPECIFIED Assessment/Plan labial abscess- drained by gyne and cultures sent no fevers, exhaust tender and swollen vanco/zosyn f/u cultures continue MRSA coverage until cultures are back ?vicenta's syndrome-
[2019-05-21] MEDS ORDERED: PIPERACILLIN/TAZOBACTAM 3.375 GM VIAL IVPB ONE ×3 (08:30→15:17)
[2019-05-21] MEDS ORDERED: DEXTROSE 5%-WATER - 50 ML IVPB ONE ×3 (08:31→15:17)
[2019-05-21] MEDS ORDERED: VANCOMYCIN 1 GM in D5W (PRE-DOCKED) 1,000 MG/250 ML IVPB SCH ×2 (09:00→21:00)
[2019-05-21] MEDS ORDERED: VANCOMYCIN 1,000 MG in DEXTROSE 5%-WATER - 250 ML IVPB SCH (09:15)
[2019-05-21] MEDS ORDERED: POTASSIUM CHLORIDE TABS 20 MEQ TABLET.ER (FP) PO ONE (10:00)
[2019-05-21] MEDS ORDERED: diphenhydrAMINE HCL 25 MG CAPSULE (FP) PO SCH (10:00)
[2019-05-21] MEDS ORDERED: CLINDAMYCIN 600MG PREMIX IVPB 600 MG/50 ML BAG IVPB SCH (10:00)
[2019-05-21] MEDS ORDERED: CEFTRIAXONE 2 GM-D5W BAG 2 GM/50 ML BAG IVPB SCH (10:00)
[2019-05-21] MEDS ORDERED: PIPERACILLIN/TAZOB 2.25 GM 2.25 GM in DEXTROSE 5%-WATER - 50 ML IVPB SCH (10:00)
[2019-05-21] MEDS: diphenhydrAMINE HCL 25 MG CAPSULE (FP) PO SCH ×2 (10:31→22:30)
[2019-05-21 10:49] VITALS: BMI 27.3
--- NOTE | 2019-05-21 11:34 | EKG ---
Test Reason : Blood Pressure : / mmHG Vent. Rate : 091 BPM Atrial Rate : 091 BPM P-R Int : 146 ms QRS Dur : 090 ms QT Int : 356 ms P-R-T Axes : 034 -24 026 degrees QTc Int : 437 ms NORMAL SINUS RHYTHM NONSPECIFIC T WAVE ABNORMALITY ABNORMAL ECG WHEN COMPARED WITH ECG OF 17-SEP-2017 05:43, NONSPECIFIC T WAVE ABNORMALITY NOW EVIDENT IN INFERIOR LEADS NONSPECIFIC T WAVE ABNORMALITY NOW EVIDENT IN ANTEROLATERAL LEADS Confirmed by DAE LOVE MD ([id number]) on 05/21/2019 11:33:55 AM Referred By: Confirmed By:DAE LOVE MD
--- NOTE | 2019-05-21 11:44 | PN ---
Progress Note (short form) - Note Progress Note: SUBJECTIVE: Reports significant improvement in vulval pain. No fever/chills/ nausea/vomiting. OBJECTIVE: Afebrile, Hemodynamically stable. Last Vital Signs Temp Pulse Resp BP Pulse Ox 97.8 F 68 18 116/66 95 05/21/19 10:48 05/21/19 10:48 05/21/19 10:48 05/21/19 10:48 05/21/19 10:48 HEENT - Atraumatic, Normocephalic Heart - S1, S2, RRR Lungs - clear to auscultation - no wheeze. No stridor. Abdomen - Soft, non-tender. Bowel Sounds normal. Extremities - no edema, no calf tenderness. Laboratory Results - last 24 hr 05/20/19 05/20/19 05/20/19 16:52 16:52 16:52 WBC 9.1 RBC 4.66 Hgb 13.7 Hct 41.5 MCV 89.1 MCH 29.4 MCHC 33.0 RDW 12.8 Plt Count 247 MPV 9.8 Absolute Neuts (auto) 7.1 Neutrophils % 77.8 Lymphocytes % 15.0 D Monocytes % 6.3 Eosinophils % 0.4 Basophils % 0.5 Nucleated RBC % 0 ESR PT with INR 12.10 INR 1.03 Sodium 139 Potassium 3.8 Chloride 105 Carbon Dioxide 26 Anion Gap 8 BUN 13.2 Creatinine 0.5 L Est GFR (CKD-EPI)AfAm 151.59 Est GFR (CKD-EPI)NonAf 130.79 Random Glucose 107 H Calcium 9.1 Phosphorus Magnesium Total Bilirubin 1.1 H AST 12 L ALT 18 Alkaline Phosphatase 53 C-Reactive Protein Total Protein 7.6 Albumin 4.0 Serum , Qual Urine Color Urine Appearance Urine pH Ur Specific [place] Urine Protein Urine Glucose (UA) Urine Ketones Urine Blood Urine Nitrite Urine Bilirubin Urine Urobilinogen Ur Leukocyte Esterase Urine WBC (Auto) Urine RBC (Auto) Urine Casts (Auto) U Epithel Cells (Auto) Urine Bacteria (Auto) HIV 1&2 Antibody Screen HIV P24 Antigen Blood Type Antibody Screen 05/20/19 05/20/19 05/21/19 16:52 16:52 02:35 WBC RBC Hgb Hct MCV MCH MCHC RDW Plt Count MPV Absolute Neuts (auto) Neutrophils % Lymphocytes % Monocytes % Eosinophils % Basophils % Nucleated RBC % ESR PT with INR INR Sodium Potassium Chloride Carbon Dioxide Anion Gap BUN Creatinine Est GFR (CKD-EPI)AfAm Est GFR (CKD-EPI)NonAf Random Glucose Calcium Phosphorus Magnesium Total Bilirubin AST ALT Alkaline Phosphatase C-Reactive Protein Total Protein Albumin Serum , Qual Negative Urine Color Yellow Urine Appearance Clear Urine pH 5.0 Ur Specific [place] 1.039 H Urine Protein Negative Urine Glucose (UA) Negative Urine Ketones Negative Urine Blood 2+ H Urine Nitrite Negative Urine Bilirubin Negative Urine Urobilinogen 0.2 Ur Leukocyte Esterase Negative Urine WBC (Auto) 4 Urine RBC (Auto) 11 Urine Casts (Auto) 1 U Epithel Cells (Auto) 2.8 Urine Bacteria (Auto) 7.7 HIV 1&2 Antibody Screen HIV P24 Antigen Blood Type A POSITIVE Antibody Screen Negative 05/21/19 05/21/19 05/21/19 05:58 05:58 05:58 WBC 8.7 RBC 4.10 Hgb 12.2 Hct 36.5 MCV 88.9 MCH 29.8 MCHC 33.6 RDW 12.8 Plt Count 235 MPV 9.5 Absolute Neuts (auto) Neutrophils % Lymphocytes % Monocytes % Eosinophils % Basophils % Nucleated RBC % ESR 11 PT with INR INR Sodium 140 Potassium 3.4 L Chloride 105 Carbon Dioxide 26 Anion Gap 8 BUN 9.8 Creatinine 0.8 Est GFR (CKD-EPI)AfAm 115.47 Est GFR (CKD-EPI)NonAf 99.63 Random Glucose 113 H Calcium 8.4 L Phosphorus 4.0 Magnesium 1.9 Total Bilirubin AST ALT Alkaline Phosphatase C-Reactive Protein 0.9 H Total Protein Albumin Serum , Qual Urine Color Urine Appearance Urine pH Ur Specific [place] Urine Protein Urine Glucose (UA) Urine Ketones Urine Blood Urine Nitrite Urine Bilirubin Urine Urobilinogen Ur Leukocyte Esterase Urine WBC (Auto) Urine RBC (Auto) Urine Casts (Auto) U Epithel Cells (Auto) Urine Bacteria (Auto) HIV 1&2 Antibody Screen HIV P24 Antigen Blood Type Antibody Screen 05/21/19 05:58 WBC RBC Hgb Hct MCV MCH MCHC RDW Plt Count MPV Absolute Neuts (auto) Neutrophils % Lymphocytes % Monocytes % Eosinophils % Basophils % Nucleated RBC % ESR PT with INR INR Sodium Potassium Chloride Carbon Dioxide Anion Gap BUN Creatinine Est GFR (CKD-EPI)AfAm Est GFR (CKD-EPI)NonAf Random Glucose Calcium Phosphorus Magnesium Total Bilirubin AST ALT Alkaline Phosphatase C-Reactive Protein Total Protein Albumin Serum , Qual Urine Color Urine Appearance Urine pH Ur Specific [place] Urine Protein Urine Glucose (UA) Urine Ketones Urine Blood Urine Nitrite Urine Bilirubin Urine Urobilinogen Ur Leukocyte Esterase Urine WBC (Auto) Urine RBC (Auto) Urine Casts (Auto) U Epithel Cells (Auto) Urine Bacteria (Auto) HIV 1&2 Antibody Screen Cancelled HIV P24 Antigen Cancelled Blood Type Antibody Screen Current Medications Generic Name Dose Route Start Last Admin Trade Name Freq PRN Reason Stop Dose Admin Acetaminophen 650 mg 05/21/19 00:16 05/21/19 04:00 Tylenol - PO 650 mg Q6H PRN Administration Fever Or Pain Diphenhydramine HCl 25 mg 05/21/19 10:00 05/21/19 10:31 Benadryl - PO 25 mg BID BHARATH Administration Heparin Sodium (Porcine) 5,000 unit 05/21/19 06:00 05/21/19 06:09 Heparin - SQ Not Given TID HBARATH Vancomycin HCl 1,000 mg in 250 mls @ 166.667 mls/hr 05/21/19 10:15 Vancomycin (Pre-Docked) IVPB Q12H BHARATH Protocol Piperacillin Sod/Tazobactam 50 mls @ 100 mls/hr 05/21/19 10:00 05/21/19 10:50 Sod 3.375 gm/ Dextrose IVPB 100 mls/hr Q8H-IV BHAARTH Administration Protocol Influenza Virus Vaccine Quadrival 60 mcg 05/21/19 10:49 Flulaval Quad [id number] IM 05/21/19 10:50 .ONCE ONE Ketorolac Tromethamine 15 mg 05/21/19 00:42 05/21/19 07:25 Toradol Injection - IVPUSH 05/26/19 00:41 15 mg Q6H PRN Administration PAIN LEVEL 6-10 Home Medications Medication Instructions Recorded Iron,Carb/Vit C/Vit B12/Folic 1 each PO DAILY 05/21/19 [Iron 100 Plus Tablet] ASSESSMENT/PLAN: 29 year old female with history of 1 year ago, 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 Pelvic CT scan showed left labia fluid collection - 3 x 1.5 x 1.5 rim-enhancing fluid collection seen within the left inferior labia which may represent abscess formation versus infected cyst. Several bilateral nonspecific mildly enlarged inguinal lymph nodes are noted which may be reactive in nature. s/p I and D by Dr. Angel in ED 8cc purulent fluid drained - Cx pending Developed itcy scalp and SOB arond the time of Abx infusion. Subsided with Benadryl. Unclear cause - contrast for CT vs Vancomycin - now completely resolved. Seen by ID - recommend continuing Zosyn/Vanco Follow up Surgical Fluid Cx K 3.4 - replaced. Discussed with RESERVATION SALES AGENT (Dr. Angel and Dr. Adams) - patient will appropriately be transferred to Gynecology service. Dr. Adams in agreement. DVT Px - Heparin SQ. Visit type - Emergency Visit Emergency Visit: Yes ED Registration Date: 05/20/19 Care time: The patient presented to the Emergency Department on the above date and was hospitalized for further evaluation of their emergent condition. - New Patient This patient is new to me today: Yes Date on this admission: 05/21/19 - Critical Care Critical Care patient: No - Discharge Referral Referred to [facility] Med P.C.: No
[2019-05-21] MEDS ORDERED: FLU VACCINE QUAD 60 MCG/0.5 ML (MDV 19-20) IM ONE (11:45)
--- NOTE | 2019-05-21 13:58 | HP ---
Admitting History and Physical - Primary Care Physician PCP: Kendall Adams - Admission Chief Complaint: Labial abscess History of Present Illness: Patient admitted overnight for left labial abscess. Patient admitted under medicine team and I&D performed by INSURANCE PREMIUM AUDITOR attending. Patient history is significant for female circumcision as a child. She reports changing her pubic area shaving methods resulting in skin trauma and subsuquent presentation. She reports feeling considerably better compared to last night. She reports pain and swelling has improved. Patient was interviewed at bedside using phone beach patrol lieutenant ID # [id number] (Italian) History Source: Patient Limitations to Obtaining History: No Limitations - Past Medical History WICK TENDER: No: Alzheimer's, CVA, Dementia, Migraine, Multiple Sclerosis, Peripheral Neuropathy, Parkinson's, Seizure, Syncope, TIA, Vertigo, Other Cardiovascular: No: AFIB, Aneurysm, Aortic Insufficiency, Aortic Stenosis, CAD, CHF, Deep Vein Thrombosis, HTN, Hyperlipdemia, ND, Mitral Insufficiency, Mitral Stenosis, Murmur, Pulmonary Hypertension, Other Pulmonary: No: Asthma, Bronchitis, Cancer, COPD, O2 Dependent, Pneumonia, Previously Intubated, Pulmonary Embolus, Pulmonary Fibrosis, Sleep Apnea, Other Gastrointestinal: Yes: Gastritis (Zantac 150 mg bid). No: Ascites, Cancer, Constipation, Crohn's Disease, Diverticulitis, Diverticulosis, Esophageal Varices, GERD, GI Bleed, Hemorrhoids, Hiatal Hernia, Inflamatory Bowel Disease, Irritable Bowel Disease, Pancreatitis, Peptic Ulcer Disease, Ulcerative Colitis , Other Hepatobiliary: No: Cirrhosis, Cholelithiasis, Cholecystitis, Choledocholithiasis , Hepatitis A, Hepatitis B, Hepatitis C, Other Renal/: No: Renal Failure, Renal Inusuff, BPH, Cancer, Hematuria, Hemodialysis , Neurogenic Bladder, Renal Calculi, UTI, Other Reproductive: No: Ectopic , Endometriosis, Fibroids, PID, Polycystic Ovary Syndrome, Postmenopausal, Other ...: No Heme/Onc: No: Anemia, B12 Deficiency, Bleeding Disorder, Cancer, Current Chemotherapy, Current Radiation Therapy, Hemochromatosis, Hypercoaguable State, Myeloproliferative Synd, Sickle Cell Disease, Sickle Cell Trait, Thrombocytopenia, Other Infectious Disease: Yes: Other (labial abscess) Psych: No: Addictions, Anxiety, Bipolar, Depression, Panic, Psychosis, Schizophrenia, Other Musculoskeletal: No: Bursitis, Chronic low back pain, Hemiparesis, Hemiplegia, Osteoarthritis, Paraplegia, Other Rheumatology: No: Fibromyalgia, Gout, Lupus, Rheumatoid Arthritis, Sarcoidosis, Vasculitis, Other ENT: No: Allergic Rhinitis, Sinusitis, Other Endocrine: No: Rock[place]'s Disease, Savannah's Disease, Diabetes Insipidus, Diabetes Mellitus, Hyperparathyroidism, Hyperthyroidism, Hypothyroidism, Osteopenia, SIADH, Other Dermatology: No: Basal Cell, Cellulitis, Eczema, Melanoma, Psoriasis, Squamous Cell, Other - Past Surgical History Past Surgical History: Yes: , Tonsillectomy (in child camacho) Additional Past Surgical History: Female circumcision as a child - Smoking History Smoking history: Never smoked Have you smoked in the past 12 months: No - Alcohol/Substance Use Hx Alcohol Use: No History of Substance Use: reports: None - Social History ADL: Independent History of Recent Travel: No (last 2 years ago) Home Medications - Allergies Allergies/Adverse Reactions: Allergies Allergy/AdvReac Type Severity Reaction Status Date / Time No Known Allergies Allergy Verified 05/20/19 16:38 - Home Medications Home Medications: Ambulatory Orders Iron,Carb/Vit C/Vit B12/Folic [Iron 100 Plus Tablet] 1 each PO DAILY 05/21/19 Family Medical History Family Hx Diabetes: Mother, Father Family Hx Nuerologic Problems: Mother, Father (strokes) Review of Systems - Review of Systems Constitutional: reports: No Symptoms Eyes: reports: No Symptoms HENT: reports: No Symptoms Neck: reports: Swollen Glands Cardiovascular: reports: No Symptoms Respiratory: reports: No Symptoms Gastrointestinal: reports: No Symptoms Genitourinary: reports: Pain, Other (pain and sweeling, but significantly improved as per patient) Breasts: reports: No Symptoms Reported Musculoskeletal: reports: No Symptoms Integumentary: reports: No Symptoms Neurological: reports: No Symptoms Endocrine: reports: No Symptoms Hematology/Lymphatic: reports: No Symptoms Psychiatric: reports: No Symptoms Pain Intensity: 6 (improved from 04/02 previously) Physical Examination Vital Signs: Vital Signs Temperature 97.8 F 05/21/19 10:48 Pulse Rate 68 05/21/19 10:48 Respiratory Rate 18 05/21/19 10:48 Blood Pressure 116/66 05/21/19 10:48 O2 Sat by Pulse Oximetry (%) 95 05/21/19 10:48 Constitutional: Yes: Calm HENT: Yes: Atraumatic Neck: Yes: Supple Cardiovascular: Yes: Regular Rate and Rhythm Respiratory: Yes: Regular Gastrointestinal: Yes: Soft ...Rectal Exam: Yes: Deferred Renal/: Yes: Other (left labial minora edema improved and mild tender to palpation, Incision is closed and no purulent discharge noted. Engorgement decreased. Left labia majora with moderate erythema and inflammation, mild tenderness to palpation. No crepitus, no induration, no bleeding) Breast(s): Yes: Other (deferred) Musculoskeletal: Yes: WNL Extremities: Yes: WNL Edema: No Integumentary: Yes: WNL Wound/Incision: Yes: Clean/Dry, Well Approximated Neurological: Yes: Alert, Oriented ...Motor Strength: WNL Psychiatric: Yes: Alert, Oriented Labs: CBC, BMP 05/21/19 05:58 05/21/19 05:58 Imaging - Results Cat Scan: Report Reviewed, Image Reviewed (I personally reviewed Images with Radiology attending applications chemist.) Assessment/Plan 29 y/o female with h/o female circumcision admitted following I&D of left labia minora abscess. Patient is afebrile and WBC WNL. Patient reports improvement in her condition. Patient admitted by medicine team and ID service is on board. Antibiotic IV treatment with zosyn and vanco. Patient is clinically improving. -Transfer patient to INSURANCE PREMIUM AUDITOR service -Adjust pain control -Increase zosyn -Close monitoring -F/U wound cultures -Breast pumping -Am labs
[2019-05-21] MEDS: VANCOMYCIN 1 GRAM (PRE-DOCKED) 1,000 MG/250 ML BAG IVPB SCH ×2 (15:06→22:45)
[2019-05-21] MEDS: PIPERACILLIN/TAZOB 3.375 GM 3.375 GM in DEXTROSE 5%-WATER - 50 ML IVPB SCH ×2 (15:27→20:49)
[2019-05-21] MEDS: oxyCODONE HCL 5 MG TABLET PO PRN ×2 (15:31→22:30)
[2019-05-21] MEDS: ACETAMINOPHEN 1000 MG/100 ML VIAL (NON FORMULARY) IVPB PRN (17:44)
[2019-05-22] MEDS: ACETAMINOPHEN 1000 MG/100 ML VIAL (NON FORMULARY) IVPB PRN ×2 (00:18→19:36)
[2019-05-22] MEDS ORDERED: PIPERACILLIN/TAZOBACTAM 3.375 GM VIAL IVPB ONE ×4 (02:17→20:08)
[2019-05-22] MEDS ORDERED: DEXTROSE 5%-WATER - 50 ML IVPB ONE ×4 (02:17→20:09)
[2019-05-22] MEDS: PIPERACILLIN/TAZOB 3.375 GM 3.375 GM in DEXTROSE 5%-WATER - 50 ML IVPB SCH ×5 (02:42→21:00)
[2019-05-22] MEDS: HEPARIN NA (PORCINE) 5,000 UNITS/ML 1ML VIAL SQ SCH ×3 (07:19→22:00)
[2019-05-22] MEDS: oxyCODONE HCL 5 MG TABLET PO PRN (07:21)
[2019-05-22 09:14] LABS: BASO % 0.8 % (0-2.0); EOS % 3.1 % (0-4.5); HEMATOCRIT 36.6 % (32.4-45.2); HEMOGLOBIN 12.4 GM/dL (10.7-15.3); LYMPH % 20.5 % (8-40); MCH 30.2 pg (25.7-33.7); MEAN CELL VOLUME 88.7 fl (80-96); MEAN PLT VOLUME 9.3 fl (7.5-11.1); MONO % 8.9 % (3.8-10.2); NEUT % 66.7 % (42.8-82.8); PLATELET COUNT 203 K/MM3 (134-434); RBC 4.13 M/mm3 (3.60-5.2); WHITE BLOOD COUNT 5.8 K/mm3 (4.0-10.0)
[2019-05-22] MEDS ORDERED: ZOLPIDEM TARTRATE 5 MG TABLET PO ONE (09:51)
[2019-05-22] MEDS ORDERED: oxyCODONE HCL 5 MG TABLET PO ONE (09:52)
[2019-05-22] MEDS ORDERED: LIDOCAINE HCL 1%, 10 MG/ML (20ML VIAL) NR ONE (10:30)
[2019-05-22] MEDS: diphenhydrAMINE HCL 25 MG CAPSULE (FP) PO SCH ×2 (10:36→22:00)
[2019-05-22] MEDS: VANCOMYCIN 1 GRAM (PRE-DOCKED) 1,000 MG/250 ML BAG IVPB SCH ×2 (10:38→22:15)
[2019-05-22] MEDS ORDERED: BENZOCAINE 20% 57 GM BOTTLE TP ONE (11:28)
--- NOTE | 2019-05-22 11:38 | PN ---
Progress Note, Physician Chief Complaint: Patient reports pain and swelling improved but foul smell coming from vaginal area History of Present Illness: Patient admitted and undergoing IV abx for left labial abscess, s/p draining. - Current Medication List Current Medications: Active Medications Acetaminophen (Ofirmev Injection -) 1,000 mg IVPB Q6H PRN PRN Reason: PAIN LEVEL 6-10 Last Admin: 05/22/19 00:18 Dose: 1,000 mg Benzocaine (Americaine 20% [place] -) 1 spray TP ONCE ONE Stop: 05/22/19 11:29 Diphenhydramine HCl (Benadryl -) 25 mg PO BID BHARATH Last Admin: 05/22/19 10:36 Dose: 25 mg Heparin Sodium (Porcine) (Heparin -) 5,000 unit SQ BID BHARATH Last Admin: 05/22/19 10:36 Dose: 5,000 unit Vancomycin HCl (Vancomycin (Pre-Docked)) 1,000 mg in 250 mls @ 166.667 mls/hr IVPB Q12H BHARATH; Protocol Last Admin: 05/22/19 10:38 Dose: 166.667 mls/hr Piperacillin Sod/Tazobactam (Sod 3.375 gm/ Dextrose) 50 mls @ 100 mls/hr IVPB Q6H-IV BHARATH; Protocol Piperacillin Sod/Tazobactam (Sod 3.375 gm/ Dextrose) 50 mls @ 100 mls/hr IVPB Q6H-IV BHARATH; Protocol Stop: 05/22/19 14:59 Last Admin: 05/22/19 10:11 Dose: 100 mls/hr Morphine Sulfate (Morphine Injection -) 2 mg IVPUSH ONCE ONE Stop: 05/22/19 12:11 Oxycodone HCl (Roxicodone -) 5 mg PO Q6H PRN PRN Reason: breakthrough Last Admin: 05/22/19 07:21 Dose: 5 mg - Objective Vital Signs: Vital Signs Temperature 98.5 F 05/22/19 05:43 Pulse Rate 76 05/22/19 05:43 Respiratory Rate 20 05/22/19 05:43 Blood Pressure 105/60 05/22/19 05:43 O2 Sat by Pulse Oximetry (%) 96 05/21/19 21:00 Constitutional: Yes: Anxious HENT: Yes: Atraumatic Neck: Yes: Supple Cardiovascular: Yes: Regular Rate and Rhythm Respiratory: Yes: Regular Gastrointestinal: Yes: Soft ...Rectal Exam: Yes: Deferred Genitourinary: Yes: Other (labial majora erythema resolved and left labial minora posterior internal area draining purulent discharge. Fluctuance noted, tender to palpation. No crepitus noted and small discharge expressed with minimal manipulation) Breast(s): Yes: Other (deferred) Extremities: Yes: WNL Edema: No Integumentary: Yes: WNL Wound/Incision: Yes: Draining (see note), Other Neurological: Yes: Alert ...Motor Strength: WNL Psychiatric: Yes: Alert, Oriented Additional Findings/Remarks: Patient is very anxious and worried. She was counseled using deputy director of finance line ID # [id number] regarding clinical recommendation for I&D of area. Measurements for pain control explained to patient. Patient is teary and concern for pain. All questions answered and informed consent obtained Labs: CBC, BMP 05/22/19 08:10 05/21/19 05:58 INR, PTT INR 1.03 (0.83-1.09) 05/20/19 16:52 Problem List - Problems (1) Labial abscess Code(s): N76.4 - ABSCESS OF VULVA Assessment/Plan 29 y/o female with h/o female circumcision admitted following I&D of left labia minora abscess. Patient is afebrile and WBC WNL. Patient reports improvement in her condition. Patient admitted by medicine team and ID service is on board. Antibiotic IV treatment with zosyn and vanco. Patient is clinically improving but draining collection noted in left labia. Informed consent for procedure obtained -I&D -Pain control measurement -Proceed accordingly
--- NOTE | 2019-05-22 12:01 | PN ---
Progress Note (short form) - Note Progress Note: for repeat drainage today still some swelling and foulsmelling drainage noted Vital Signs Period Temp Pulse Resp BP Sys/Spring Pulse Ox Last 24 Hr 98.0 F-98.5 F 64-76 16-20 105-116/60-74 96 cor-rrr lungs clear +labial swelling- minimal exam due to tenderness/pain CBC, BMP 05/22/19 08:10 05/21/19 05:58 Microbiology 05/20/19 23:00 Abscess Gram Stain - Final 05/20/19 23:00 Abscess Wound Culture - Preliminary Beta Hem Streptococcus Group F 05/21/19 02:35 Urine - Urine Clean Catch Urine Culture - Final NO GROWTH OBTAINED Current Medications Acetaminophen (Ofirmev Injection -) 1,000 mg IVPB Q6H PRN PRN Reason: PAIN LEVEL 6-10 Last Admin: 05/22/19 00:18 Dose: 1,000 mg Diphenhydramine HCl (Benadryl -) 25 mg PO BID BHARATH Last Admin: 05/22/19 10:36 Dose: 25 mg Heparin Sodium (Porcine) (Heparin -) 5,000 unit SQ BID BHARATH Last Admin: 05/22/19 10:36 Dose: 5,000 unit Vancomycin HCl (Vancomycin (Pre-Docked)) 1,000 mg in 250 mls @ 166.667 mls/hr IVPB Q12H BHARATH; Protocol Last Admin: 05/22/19 10:38 Dose: 166.667 mls/hr Piperacillin Sod/Tazobactam (Sod 3.375 gm/ Dextrose) 50 mls @ 100 mls/hr IVPB Q6H-IV BHARATH; Protocol Morphine Sulfate (Morphine Sulfate) 2 mg IVPUSH ONCE ONE Stop: 05/22/19 12:11 Oxycodone HCl (Roxicodone -) 5 mg PO Q6H PRN PRN Reason: breakthrough Last Admin: 05/22/19 07:21 Dose: 5 mg a/p labial abscess- for repeat drainage, f/u cultures continue vanco/zosyn Problem List - Problems (1) Labial abscess Code(s): N76.4 - ABSCESS OF VULVA
[2019-05-22] MEDS ORDERED: MORPHINE SULFATE 2 MG/ML VIAL IVPUSH ONE ×2 (12:10→14:10)
[2019-05-22] MEDS ORDERED: PT OWN MED DRAWER 7, Y5N ONE (12:43)
[2019-05-22] MEDS ORDERED: MORPHINE SULFATE 2 MG/ML VIAL ONE (13:20)
[2019-05-22] MEDS ORDERED: morphine CARPU-JECT 2 MG/1 ML DISP.SYRIN IVPUSH ONE (14:10)
--- NOTE | 2019-05-22 14:40 | PN ---
Progress Note (short form) - Note Progress Note: Left labial area was cleaned with betadine and topical anesthesia applied via spray after time out. Area adjacent to draining site on its posterior internal aspect injected with lidocaine 1%. Patient received ambien and IV morphine during the procedure. The area was incised with a scalpel and mild amount of serosanguineous and pus removed. Culture obtained. The area was explored with a q-tip and irrigated with sterile water. Area packed with small betadine packing gauze. no additional collections, fluctuance, induration noted. Problem List - Problems (1) Labial abscess Code(s): N76.4 - ABSCESS OF VULVA
[2019-05-23] MEDS: ACETAMINOPHEN 1000 MG/100 ML VIAL (NON FORMULARY) IVPB PRN (01:24)
[2019-05-23] MEDS ORDERED: PIPERACILLIN/TAZOBACTAM 3.375 GM VIAL IVPB ONE ×4 (02:22→22:01)
[2019-05-23] MEDS ORDERED: DEXTROSE 5%-WATER - 50 ML IVPB ONE ×4 (02:22→22:02)
[2019-05-23] MEDS: PIPERACILLIN/TAZOB 3.375 GM 3.375 GM in DEXTROSE 5%-WATER - 50 ML IVPB SCH ×4 (02:30→22:08)
[2019-05-23] MEDS: oxyCODONE HCL 5 MG TABLET PO PRN ×2 (02:52→08:55)
[2019-05-23 09:05] LABS: BASO % 0.8 % (0-2.0); EOS % 3.2 % (0-4.5); HEMATOCRIT 36.9 % (32.4-45.2); HEMOGLOBIN 12.5 GM/dL (10.7-15.3); LYMPH % 35.4 % (8-40); MCHC 33.8 g/dl (32.0-36.0); MEAN CELL VOLUME 88.7 fl (80-96); MEAN PLT VOLUME 8.9 fl (7.5-11.1); MONO % 10.2 % (3.8-10.2); NEUT % 50.4 % (42.8-82.8); PLATELET COUNT 243 K/MM3 (134-434); RBC 4.16 M/mm3 (3.60-5.2)
[2019-05-23] MEDS: HEPARIN NA (PORCINE) 5,000 UNITS/ML 1ML VIAL SQ SCH (09:40)
[2019-05-23] MEDS: diphenhydrAMINE HCL 25 MG CAPSULE (FP) PO SCH (09:40)
[2019-05-23] MEDS: VANCOMYCIN 1 GRAM (PRE-DOCKED) 1,000 MG/250 ML BAG IVPB SCH (10:33)
[2019-05-23] MEDS ORDERED: ACETAMINOPHEN 325 MG TABLET (FP) PO PRN (11:47)
--- NOTE | 2019-05-23 11:55 | PN ---
Progress Note, Physician Chief Complaint: Patient reports pain and swelling improved as well foul smell coming from vaginal area compared to yesterday. She noticed her labia majora back to normal and left labia minora slightly inflamed. History of Present Illness: Patient admitted and undergoing IV abx for left labial abscess, s/p draining. Patient underwent a second I&D attempt yesterday and packing placed - Current Medication List Current Medications: Active Medications Acetaminophen (Tylenol -) 650 mg PO Q6H PRN PRN Reason: PAIN LEVEL 1-5 Diphenhydramine HCl (Benadryl -) 25 mg PO BID BHARATH Last Admin: 05/23/19 09:40 Dose: 25 mg Heparin Sodium (Porcine) (Heparin -) 5,000 unit SQ BID BHARATH Last Admin: 05/23/19 09:40 Dose: 5,000 unit Vancomycin HCl (Vancomycin (Pre-Docked)) 1,000 mg in 250 mls @ 166.667 mls/hr IVPB Q12H BHARATH; Protocol Last Admin: 05/23/19 10:33 Dose: 166.667 mls/hr Piperacillin Sod/Tazobactam (Sod 3.375 gm/ Dextrose) 50 mls @ 100 mls/hr IVPB Q6H-IV BHARATH; Protocol Last Admin: 05/23/19 08:56 Dose: 100 mls/hr Oxycodone HCl (Roxicodone -) 5 mg PO Q6H PRN PRN Reason: breakthrough Last Admin: 05/23/19 08:55 Dose: 5 mg - Objective Vital Signs: Vital Signs Temperature 97.8 F 05/23/19 10:00 Pulse Rate 80 05/23/19 10:00 Respiratory Rate 20 05/23/19 10:00 Blood Pressure 93/67 05/23/19 10:00 O2 Sat by Pulse Oximetry (%) 100 05/22/19 21:00 Constitutional: Yes: Calm HENT: Yes: Atraumatic Neck: Yes: Supple Cardiovascular: Yes: Regular Rate and Rhythm Respiratory: Yes: Regular Gastrointestinal: Yes: Soft ...Rectal Exam: Yes: Other (deferred) Genitourinary: Yes: Other (left labia minora edema improved and iodoform packing in place) Musculoskeletal: Yes: WNL, Muscle Weakness Edema: LLE: Trace, RLE: Trace Integumentary: Yes: WNL Wound/Incision: Yes: Clean/Dry, Draining (minimal serosanguineous discharge, packing in place) Neurological: Yes: Alert, Oriented ...Motor Strength: WNL Psychiatric: Yes: Alert, Oriented Additional Findings/Remarks: Iodoform packing removed and a moderate size 2 x 1 cm consolidated yellowish material expressed spontaneously. No induration, fluctuance, nor crepitus palpated. Mild tenderness at incision site only of left labia minora Area was cleaned with betadine and anesthetic spray applied. Incision was irrigated copiously with sterile saline. Small amount of new iodoform packing placed. Patient tolerated procedure well. 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 Patient is afebrile and WBC WNL. Patient reports improvement in her condition. Patient admitted by medicine team and ID service is on board. Antibiotic IV treatment with zosyn and vanco. Patient is clinically improving but draining collection noted in left labia yesterday and second I&D procedure performed. Infectious material expressed oout of incision today and patient is clinically improved. Wound culture preliminary report showed group F Strep, sensitivity pending. -Switch to PO pain control -Packing change daily -IV antibiotics -F/U sensitivities
--- NOTE | 2019-05-23 14:06 | PN ---
Progress Note (short form) - Note Progress Note: feels improved reports still some drainage expressed today from the labia abscess Vital Signs Period Temp Pulse Resp BP Sys/Spring Pulse Ox Last 24 Hr 97.8 F-99.2 F 67-91 16-20 93-129/66-76 100 cor-rrr lungs clear CBC, BMP 05/23/19 08:05 05/21/19 05:58 Microbiology 05/20/19 23:00 Abscess Gram Stain - Final 05/20/19 23:00 Abscess Wound Culture - Preliminary Beta Hem Streptococcus Group F Pending Organism 05/22/19 13:50 Abscess Wound Culture - Preliminary NO GROWTH OBTAINED AFTER 24 HOURS INCUBATION, REINCUBATED. 05/21/19 02:35 Urine - Urine Clean Catch Urine Culture - Final NO GROWTH OBTAINED a/p labial abscess- for repeat drainage, f/u cultures d/c vancomycin - no mrsa continue zosyn strep and anaerobe in abscess culture switch to augmentin when ready for discharge Problem List - Problems (1) Labial abscess Code(s): N76.4 - ABSCESS OF VULVA
[2019-05-23] MEDS: IBUPROFEN 600 MG TABLET (FP) PO PRN (23:48)
[2019-05-24] MEDS ORDERED: PIPERACILLIN/TAZOBACTAM 3.375 GM VIAL IVPB ONE ×2 (02:24→09:38)
[2019-05-24] MEDS ORDERED: DEXTROSE 5%-WATER - 50 ML IVPB ONE ×2 (02:25→09:38)
[2019-05-24] MEDS: PIPERACILLIN/TAZOB 3.375 GM 3.375 GM in DEXTROSE 5%-WATER - 50 ML IVPB SCH ×2 (02:31→09:40)
[2019-05-24] MEDS ORDERED: SULFAMETHOXAZOLE/TRIMETHOPRIM 800MG/160MG D.S. TABLET PO SCH (12:58)
[2019-05-24] MEDS ORDERED: VANCOMYCIN 1 GM in D5W (PRE-DOCKED) 1,000 MG/250 ML IVPB ONE (13:00)
--- NOTE | 2019-05-24 13:18 | PN ---
Progress Note, Physician Chief Complaint: Patient reports pain and swelling improved as well foul smell coming from vaginal area compared to yesterday. She noticed her labia minora almost back to normal. History of Present Illness: Patient admitted and undergoing IV abx for left labial abscess, s/p draining. Patient underwent a second I&D attempt yesterday and packing placed. Hospital day # 5 and clinically improved - Current Medication List Current Medications: Active Medications Acetaminophen (Tylenol -) 650 mg PO Q6H PRN PRN Reason: PAIN LEVEL 1-5 Ibuprofen (Motrin -) 600 mg PO Q6H PRN PRN Reason: PAIN LEVEL 4 - 6 Last Admin: 05/23/19 23:48 Dose: 600 mg Oxycodone HCl (Roxicodone -) 5 mg PO Q6H PRN PRN Reason: breakthrough Last Admin: 05/23/19 08:55 Dose: 5 mg Trimethoprim/Sulfamethoxazole (Bactrim Ds -) 1 each PO QID BHARATH Vancomycin HCl (Vancomycin (Pre-Docked)) 1,000 mg IVPB ONCE ONE; Protocol Stop: 05/24/19 13:01 - Objective Vital Signs: Vital Signs Temperature 98.1 F 05/24/19 09:57 Pulse Rate 80 05/24/19 09:57 Respiratory Rate 20 05/24/19 09:57 Blood Pressure 120/68 05/24/19 09:57 O2 Sat by Pulse Oximetry (%) 98 05/23/19 21:00 Constitutional: Yes: No Distress HENT: Yes: Atraumatic Neck: Yes: Supple Cardiovascular: Yes: Regular Rate and Rhythm Respiratory: Yes: Regular Gastrointestinal: Yes: Soft ...Rectal Exam: Yes: Deferred Genitourinary: Yes: Other (Pakcking in place in left labia minora, no erytema noted, mild edema, no tenderness to palpation, no crepitus, no induration, no purulent discharge) Breast(s): Yes: Other (deferred) Musculoskeletal: Yes: WNL Extremities: Yes: WNL Edema: No Integumentary: Yes: WNL Wound/Incision: Yes: Clean/Dry Neurological: Yes: Alert, Oriented ...Motor Strength: WNL Psychiatric: Yes: Alert, Oriented Additional Findings/Remarks: Left labia packing removed and minimal purulence and granulation tissue expressed with sterile water flushing. Minimal discomfort during procedure. Small amount of iodoform packing placed. Patient tolerate the procedure well. 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 Patient is afebrile and WBC WNL. Patient reports improvement in her condition progressively. Patient requires minimal PO pain control. Patient admitted by medicine team and ID service is on board. Zosyn and Vanco discontinue as per sensitivities. S/P second I&D. ID service on board -Switch to Augmentin -F/U 2nd Wx -Anticipate D/C tomorrow
[2019-05-24] MEDS: AMOX TR/POT CLAV 500MG/125MG TABLETS (FP) PO SCH ×3 (14:30→18:42)
[2019-05-24] MEDS ORDERED: PT OWN MED DRAWER 7, Y5N ONE (15:10)
[2019-05-24] MEDS: IBUPROFEN 600 MG TABLET (FP) PO PRN (17:28)
--- NOTE | 2019-05-24 19:48 | DS ---
Physical Examination Vital Signs: Vital Signs Temperature 97.9 F 05/24/19 14:00 Pulse Rate 75 05/24/19 14:00 Respiratory Rate 20 05/24/19 14:00 Blood Pressure 128/79 05/24/19 14:00 O2 Sat by Pulse Oximetry (%) 98 05/23/19 21:00 Findings/Remarks: Patient is doing well, ambulating, tolerating PO, voiding, reports no pain and swelling resolved. Constitutional: Yes: Calm HENT: Yes: Atraumatic Neck: Yes: Supple Cardiovascular: Yes: Regular Rate and Rhythm Respiratory: Yes: Regular Gastrointestinal: Yes: Soft ...Rectal Exam: Yes: Deferred Renal/: Yes: Other (mild left labia minora edema, non-tender, no crepitus, no induration, no fluctuance) Breast(s): Yes: Other (deferred) Extremities: Yes: WNL Integumentary: Yes: WNL Wound/Incision: Yes: Clean/Dry (iodoform packing removed and no additional purulence noted. Area cleaned with betadine and sterile water. No tenderness during exam. Incision healing and no packing required) Neurological: Yes: Alert, Oriented ...Motor Strength: WNL Psychiatric: Yes: Alert, Oriented Labs: CBC, BMP 05/23/19 08:05 05/21/19 05:58 Discharge Summary Problems reviewed: Yes Reason For Visit: ABSCESS OF LABIA Current Active Problems Labial abscess (Acute) Vaginal pain (Acute) Procedures: Principal: I&D x 2 and IV antibiotics Hospital Course: Patient was admitted to the hospital on 05/21/19 for large left labia minora abscess. Partial I&D performed in ER and she was admitted for IV antibiotics. Patient underwent a second I&D procedure removing additional purulent material on 05/23/19. She was kept on board [facility] for 4 days and switched to PO on 05/24/19. Patient was co-managed with ID service. Patient clinically improved and clear precautions instructions given. Patient will be discharged Augmentin for 10 days with short follow up at [facility]. Health Concerns: Labial abscess Plan of Treatment: Discharge on oral antibiotics, sitz baths twice a day, avoid trauma to the area. Call Md with fever, worsening pain, worsening swelling, and any other concerns. Please follow up on Saturday05/27/19 afternoon at health center Condition: Stable - Instructions Diet, Activity, Other Instructions: Return to regular diet as tolerated. Return to regular activity once cleared by doctor. Take antibiotics and follow instructions as specified by physician. Referrals: Kendall Adams MD [Primary Care Provider] - Disposition: HOME - Home Medications Comprehensive Discharge Medication List: Ambulatory Orders Iron,Carb/Vit C/Vit B12/Folic [Iron 100 Plus Tablet] 1 each PO DAILY 05/21/19 Prescription Drug Monitoring Program (I-STOP) results: I-STOP reviewed and no issues identified
[2019-05-25] MEDS ORDERED: PT OWN MED DRAWER 7, Y5N ONE (09:02)
[2019-05-25] MEDS: AMOX TR/POT CLAV 500MG/125MG TABLETS (FP) PO SCH (09:17)
[2019-05-25 11:08] VITALS: BP 105/68; PULSE 84; TEMP 98.2
== END 2019-05-25 11:29 | disposition home or self-care (01) | DRG 518 ==
LOC: JER 16:33 → UNDOADMIN 23:19 → JERBED 23:19 → J6S 05-21 07:52 → JERBED 05-21 07:52 → J6S 05-21 13:48
PROVIDERS: ADMIT Internal Medicine; ATTEND Student in an Organized Health Care Education/Training Program
PROC: 0U9M0ZZ Drainage of Vulva, Open Approach (ICD-10-PCS; principal; 2019-05-20)
PROC: 0U9M0ZZ Drainage of Vulva, Open Approach (ICD-10-PCS; 2019-05-22)
DX: N76.4 Abscess of vulva (principal); N83.292 Other ovarian cyst, left side; K29.70 Gastritis, unspecified, without bleeding; N90.810 Female genital mutilation status, unspecified; B95.4 Other streptococcus as the cause of diseases classified elsewhere
CPT/HCPCS: 36415; 72194-TC; 80048; 80053; 81003; 83735; 84100; 84703; 85025; 85027; 85610; 85651; 86140; 86593; 86850; 86900; 86901; 87070; 87076; 87086; 87186; 87205; 87389; 87491; 87591; 93005; 93010; 99285-25; J0131; J1644; Q2036; Q9967

== ENCOUNTER 2019-09-02 01:33 | Inpatient (IN) | payer OTHER ==
--- NOTE | 2019-09-02 02:26 | PDOC ---
Attending Attestation - Resident Resident Name: Stephany Ford - ED Attending Attestation I have performed the following: I have examined & evaluated the patient, The case was reviewed & discussed with the resident, I agree w/resident's findings & plan - HPI HPI: 09/09/19 02:18 see resident hpi - Physicial Exam PE: 09/09/19 02:18 see resident exam - Medical Decision Making 09/09/19 02:18 29-year-old gravid female with right upper quadrant/right flank pain Ultrasound transvaginally right upper quadrant pending Signed out to dayshift Discharge - Discharge Information Problems reviewed: Yes Clinical Impression/Diagnosis: UTI (urinary tract infection) Qualifiers: Urinary tract infection type: site unspecified Hematuria presence: without hematuria Qualified Code(s): N39.0 - Urinary tract infection, site not specified Abdominal pain Qualifiers: Abdominal location: right upper quadrant Qualified Code(s): R10.11 - Right upper quadrant pain Condition: Improved Disposition: HOME
[2019-09-02] MEDS ORDERED: SODIUM CHLORIDE 1,000 ML IV STA (02:47)
[2019-09-02] MEDS ORDERED: ACETAMINOPHEN 1000 MG/100 ML VIAL (NON FORMULARY) IVPB ONE ×3 (02:47→19:49)
--- NOTE | 2019-09-02 03:01 | PDOC ---
History of Present Illness - General Chief Complaint: Pain, Acute Stated Complaint: ABD PAIN, 12 WEEKS Time Seen by Provider: 09/02/19 02:25 History Source: Patient, Spouse Exam Limitations: Language Barrier - History of Present Illness Initial Comments: 09/02/19 02:57 29y at 12w gestation with no significant PMH presenting to ED with complaints of abdominal pain. Pain is in the RUQ, started 3 days ago and has been getting worse. She says the pain is constant and is starting to radiate to the R flank. She endorses nausea. Denies vomiting, diarrhea, fevers, chills, rash, pruritis, hematuria, dysuria, vaginal bleeding, chest pain, cough, congestion, leg swelling. She states the pain is made worse by movements, inspiration and after meals. She did not have this problem during her previous . PMD: OB: Angie Meds: none Allergies: nkda Social: denies PSH: , female circumcision Past History - Past Medical History Allergies/Adverse Reactions: Allergies Allergy/AdvReac Type Severity Reaction Status Date / Time No Known Allergies Allergy Verified 09/02/19 02:35 Home Medications: Ambulatory Orders NK [No Known Home Medication] 09/02/19 Anemia: Yes Asthma: No Cancer: No Cardiac Disorders: No CVA: No COPD: No CHF: No Dementia: No Diabetes: No GI Disorders: No Disorders: No HTN: No Hypercholesterolemia: No Liver Disease: No Seizures: No Thyroid Disease: No - Surgical History Abdominal Surgery: No Appendectomy: No Cardiac Surgery: No Cholecystectomy: No Lung Surgery: No Neurologic Surgery: No Orthopedic Surgery: No - Reproductive History (#): 1 - Immunization History Immunization Up to Date: Yes - Psycho Social/Smoking Cessation Hx Smoking History: Never smoked Have you smoked in the past 12 months: No Hx Alcohol Use: No Drug/Substance Use Hx: No Substance Use Type: None Hx Substance Use Treatment: No Review of Systems - Review of Systems Constitutional: No: Chills, Fever HEENTM: No: Symptoms Reported Respiratory: No: Symptoms reported Cardiac (ROS): No: Symptoms Reported ABD/GI: Yes: See HPI : No: Symptoms Reported *Physical Exam - Vital Signs Last Vital Signs Temp Pulse Resp BP Pulse Ox 98.1 F 88 20 116/79 99 09/02/19 01:35 09/02/19 01:35 09/02/19 01:35 09/02/19 01:35 09/02/19 01:35 - Physical Exam General Appearance: Yes: Nourished, Appropriately Dressed, Moderate Distress HEENT: positive: EOMI, MARCUS. negative: Scleral Icterus (R), Scleral Icterus (L) Neck: positive: Trachea midline, Supple Respiratory/Chest: positive: Lungs Clear, Normal Breath Sounds. negative: Crackles, Rales, Rhonchi, Stridor, Wheezing Cardiovascular: positive: Regular Rhythm, Regular Rate, S1, S2. negative: Edema, JVD, Murmur Vascular Pulses: Dorsalis-Pedis (R): 2+, Doralis-Pedis (L): 2+ Gastrointestinal/Abdominal: positive: Normal Bowel Sounds, Tenderness (RUQ tenderness and epigastric tenderness. ), Other (gravid). negative: Guarding, Rebound Musculoskeletal: positive: CVA Tenderness (R). negative: CVA Tenderness (L) Extremity: positive: Normal Capillary Refill. negative: Swelling, Calf Tenderness Integumentary: positive: Normal Color, Dry, Warm. negative: Jaundice Neurologic: positive: continuous improvement facilitator II-XII NML intact, Fully Oriented, Alert, Normal Mood/Affect, Normal Response, Motor Strength 5/5 ED Treatment Course - LABORATORY CBC & Chemistry Diagram: 09/02/19 03:30 09/02/19 02:47 - RADIOLOGY Radiology Studies Ordered: Category Date Time Status <14WKS US [US] Stat Ultrasound 09/02/19 01:46 Taken Medical Decision Making - Medical Decision Making 09/02/19 03:08 29y F at 12w presenting for abdominal pain. vitals wnl, no hypertension. no tachycardia. pt exquisitely tender in RUQ. ddx includes cholecystitis, cholelithiasis, pyelonephritis, appendicitis, gastritis, pud, HELLP pt arrived at 145am and sent straight to us for pelvic us. pt then expressed pain is in ruq. gb, renal and appendix views not taken. Ultrasound :Uterus is anteverted and measures 14.7centimeters in length. There is a single live IUP with estimated gestational age of 13weeks and 2days. There is a normal heart rate of 155beats per minute. There is no subchorionic bleed. The right ovary measures 4.6centimeters in length and contains a 3.3 cm cyst, possibly the corpus luteum. The left ovary is not visualized. There is no significant free fluid. will obtain labs: cbc, cmp, lipase, lactic, ua, ucx. -ivf, ofirmev. 09/02/19 04:21 UA with 2+ LE, 160 bacteria 16 wbc. no white count. pt is afebrile with normal vitals. pending chemistry. 09/02/19 04:45 chem wnl. explained to family in depth about morning sono. pt wanted to leave because she has her child with her. discussed risks of leaving v. staying. pt agreed to stay. Sono to evaluate kidneys, gb/liver and appendix ordered. Rocephin for UTI will sign out to day team -sono -pain reassessment Discharge - Discharge Information Problems reviewed: Yes Clinical Impression/Diagnosis: UTI (urinary tract infection) Qualifiers: Urinary tract infection type: site unspecified Hematuria presence: without h ematuria Qualified Code(s): N39.0 - Urinary tract infection, site not specified Abdominal pain Qualifiers: Abdominal location: right upper quadrant Qualified Code(s): R10.11 - Right upper quadrant pain Condition: Fair - Follow up/Referral - Patient Discharge Instructions - Post Discharge Activity
[2019-09-02] MEDS ORDERED: ACETAMINOPHEN INJECTION 100 ML IVPB ONE ×2 (03:17→13:27)
[2019-09-02 03:48] LABS: BASO % 0.3 % (0-2.0); EOS % 0.6 % (0-4.5); HEMATOCRIT 37.5 % (32.4-45.2); HEMOGLOBIN 12.6 GM/dL (10.7-15.3); LYMPH % 22.6 % (8-40); MCH 30.1 pg (25.7-33.7); MCHC 33.6 g/dl (32.0-36.0); MEAN CELL VOLUME 89.5 fl (80-96); MEAN PLT VOLUME 9.8 fl (7.5-11.1); MONO % 4.5 % (3.8-10.2); PLATELET COUNT 205 K/MM3 (134-434); RBC 4.19 M/mm3 (3.60-5.2); RDW 13.5 % (11.6-15.6); WHITE BLOOD COUNT 9.4 K/mm3 (4.0-10.0)
[2019-09-02 04:11] LABS: EPI CELLS 8.8 /HPF (0-5/HPF); HYALINE CASTS 1 /lpf (0-8); PH,URINE 7.5 (5.0-8.0); URINE APPEARANCE CLEAR; URINE BACTERIA 162.6 /hpf (NEGATIVE); URINE BILIRUBIN NEGATIVE (NEGATIVE); URINE COLOR YELLOW; URINE GLUCOSE (UA) NEGATIVE (NEGATIVE); URINE KETONE NEGATIVE (NEGATIVE); URINE LEUK ESTERASE 2+ (NEGATIVE); URINE NITRITE NEGATIVE (NEGATIVE); URINE PROTEIN NEGATIVE (NEGATIVE); URINE RBC 3 /hpf (0-4); URINE UROBILINOGEN 0.2 mg/dL (0.2-1.0); URINE WBC 16 /hpf (0-5)
[2019-09-02 04:24] LABS: ALBUMIN 3.1 g/dl (3.4-5.0); BILIRUBIN,TOTAL 0.2 mg/dL (0.2-1); BLOOD UREA NITROGEN 10.7 mg/dL (7-18); CALCIUM 8.2 mg/dL (8.5-10.1); CREATININE 0.4 mg/dL (0.55-1.3); POTASSIUM 3.7 mmol/L (3.5-5.1); TOT PROT 6.8 g/dl (6.4-8.2)
[2019-09-02] MEDS ORDERED: CEFTRIAXONE 1 GM in DEXTROSE 5%-WATER - 100 ML IVPB ONE (04:42)
[2019-09-02] MEDS ORDERED: CEFTRIAXONE 1 GM/50 ML BAG ONE (05:02)
--- NOTE | 2019-09-02 07:12 | PDOC ---
*Physical Exam - Vital Signs Last Vital Signs Temp Pulse Resp BP Pulse Ox 98.1 F 88 20 116/79 99 09/02/19 01:35 09/02/19 01:35 09/02/19 01:35 09/02/19 01:35 09/02/19 01:35 ED Treatment Course - LABORATORY CBC & Chemistry Diagram: 09/03/19 09:50 09/03/19 09:50 - ADDITIONAL ORDERS Additional order review: Laboratory Results 09/02/19 09/02/19 03:10 02:47 Sodium 139 Potassium 3.7 Chloride 107 Carbon Dioxide 24 Anion Gap 9 BUN 10.7 Creatinine 0.4 L Est GFR (CKD-EPI)AfAm 163.13 Est GFR (CKD-EPI)NonAf 140.75 Random Glucose 95 Calcium 8.2 L Total Bilirubin 0.2 AST 14 L ALT 16 Alkaline Phosphatase 36 L Total Protein 6.8 Albumin 3.1 L Lipase 75 Urine Color Yellow Urine Appearance Clear Urine pH 7.5 D Ur Specific [place] 1.012 Urine Protein Negative Urine Glucose (UA) Negative Urine Ketones Negative Urine Blood Negative Urine Nitrite Negative Urine Bilirubin Negative Urine Urobilinogen 0.2 Ur Leukocyte Esterase 2+ H Urine WBC (Auto) 16 Urine RBC (Auto) 3 Urine Casts (Auto) 1 U Epithel Cells (Auto) 8.8 Urine Bacteria (Auto) 162.6 09/02/19 03:30 RBC 4.19 MCV 89.5 MCHC 33.6 RDW 13.5 MPV 9.8 D Neutrophils % 72.0 D Lymphocytes % 22.6 D Monocytes % 4.5 Eosinophils % 0.6 D Basophils % 0.3 - Medications Given in the ED: ED Medications Discontinued Medications Generic Name Dose Route Start Last Admin Trade Name Freq PRN Reason Stop Dose Admin Acetaminophen 1,000 mg 09/02/19 02:47 09/02/19 03:22 Ofirmev Injection - IVPB 09/02/19 02:48 1,000 mg ONCE ONE Administration Sodium Chloride 1,000 mls @ 1,000 mls/hr 09/02/19 02:47 09/02/19 03:22 Normal Saline - IV 09/02/19 03:46 1,000 mls/hr ASDIR STA Administration Ceftriaxone Sodium 1 gm/ 100 mls @ 200 mls/hr 09/02/19 04:42 03/11/20 05:05 Dextrose IVPB 09/02/19 05:11 200 mls/hr ONCE ONE Administration Medical Decision Making - Medical Decision Making 09/02/19 07:08 13 weeks RUQ pain + for 3 days some nausea no vaginal bleeding or discharge urine + for uti given rocephin transabdominal IUP + no white count, Lft elevation meds: tylenol and fluids pending RUQ ultrasound. Reassess pain. 09/02/19 09:02 Pt still in pain, tender in the RUQ ultrasound pending. ultrasound results mild hepatomegaly with slightly coarse echotexture normal appearing gallbladder without evidence of gallstones both kidneys appear unremarkable given +UA and persistent flank tenderness, likely pyelonephritis 09/08/19 01:12 Discharge - Discharge Information Problems reviewed: Yes Clinical Impression/Diagnosis: UTI (urinary tract infection) Qualifiers: Urinary tract infection type: site unspecified Hematuria presence: without hematuria Qualified Code(s): N39.0 - Urinary tract infection, site not specified Abdominal pain Qualifiers: Abdominal location: right upper quadrant Qualified Code(s): R10.11 - Right upper quadrant pain Condition: Improved Disposition: HOME - Follow up/Referral - Patient Discharge Instructions - Post Discharge Activity
[2019-09-02] MEDS ORDERED: morphine CARPU-JECT 4 MG/1 ML DISP.SYRIN IVPUSH ONE (10:16)
[2019-09-02] MEDS ORDERED: morphine SULFATE 4 MG/ML VIAL ONE (10:20)
--- NOTE | 2019-09-02 12:01 | HP ---
CHIEF COMPLAINT: PCP: HISTORY OF PRESENT ILLNESS: Pt is a 29 yo F 13 weeks presenting with hx of RUQ pain for 3 days. Pain is severe 10/10 radiating to R flank. Pt reports nausea, no vomiting, no fever,no chills. No burning on micturition, no vaginal bleeding or discharge. LMP-May 2019, [place]; Mar 13 2020. No leg swellings, no shortness of breath, no chest pain. Pt had C/section for first 04/2018 and had L labial abscess 04/2019. Not currently on any medications. Pt got vaginal and abd US done in ED which showed viable intrauterine at 13 weeks gestation. Pt had pansensitive cx to abscess in past. ER course was notable for: (1) Vaginal and abd US: (2) Positive UA for LE2+, Ucx pending (3) Ceftriaxone 1g, Morphine and tylenol Recent Travel: PAST MEDICAL HISTORY: L labial abscess PAST SURGICAL HISTORY: C/S- 04/2018 Social History: Smoking: Alcohol: Drugs: Allergies No Known Allergies Allergy (Verified 09/02/19 02:35) HOME MEDICATIONS: Home Medications Medication Instructions Recorded NK [No Known Home Medication] 09/02/19 REVIEW OF SYSTEMS CONSTITUTIONAL: Absent: fever, chills, diaphoresis, generalized weakness, malaise, loss of appetite, weight change HEENT: Absent: rhinorrhea, nasal congestion, throat pain, throat swelling, difficulty swallowing, mouth swelling, ear pain, eye pain, visual changes CARDIOVASCULAR: Absent: chest pain, syncope, palpitations, irregular heart rate, lightheadedness, peripheral edema RESPIRATORY: Absent: cough, shortness of breath, dyspnea with exertion, orthopnea, wheezing, stridor, hemoptysis GASTROINTESTINAL:abdominal pain, nausea, Absent: abdominal distension, vomiting, diarrhea, constipation, melena, hematochezia GENITOURINARY: Absent: dysuria, frequency, urgency, hesitancy, hematuria, flank pain, genital pain MUSCULOSKELETAL: Absent: myalgia, arthralgia, joint swelling, back pain, neck pain SKIN: Absent: rash, itching, pallor HEMATOLOGIC/IMMUNOLOGIC: Absent: easy bleeding, easy bruising, lymphadenopathy, frequent infections ENDOCRINE: Absent: unexplained weight gain, unexplained weight loss, heat intolerance, cold intolerance NEUROLOGIC: Absent: headache, focal weakness or paresthesias, dizziness, unsteady gait, seizure, mental status changes, bladder or bowel incontinence PSYCHIATRIC: Absent: anxiety, depression, suicidal or homicidal ideation, hallucinations. PHYSICAL EXAMINATION Vital Signs - 24 hr 09/02/19 09/02/19 01:35 09:05 Temperature 98.1 F 98.4 F Pulse Rate 88 Pulse Rate [ 90 Right Radial] Respiratory 20 18 Rate Blood Pressure 116/79 Blood Pressure 129/80 [Left Arm] O2 Sat by Pulse 99 100 Oximetry (%) GENERAL: Awake, alert, and fully oriented, in no acute distress. EYES: Pupils equal, round and reactive to light, extraocular movements intact, sclera anicteric, conjunctiva clear. EARS, NOSE, THROAT: Moist mucous membranes. LUNGS: Breath sounds equal, clear to auscultation bilaterally. No wheezes, and no crackles. HEART: Regular rate and rhythm, normal S1 and S2, 2/6 murmur ABDOMEN: Generalized tenderness, worse RUQ, suprapubic area, R CVA tenderness MUSCULOSKELETAL: Normal range of motion at all joints. No bony deformities or tenderness. UPPER EXTREMITIES: 2+ pulses, warm, well-perfused. No cyanosis. No clubbing. No peripheral edema. LOWER EXTREMITIES: 2+ pulses, warm, well-perfused. No calf tenderness. No peripheral edema. NEUROLOGICAL: Cranial nerves II-XII intact. Normal speech. Gait not observe CBC, BMP 09/02/19 03:30 09/02/19 02:47 Laboratory Results - last 24 hr 09/02/19 09/02/19 09/02/19 02:47 03:10 03:30 WBC 9.4 RBC 4.19 Hgb 12.6 Hct 37.5 MCV 89.5 MCH 30.1 MCHC 33.6 RDW 13.5 Plt Count 205 MPV 9.8 D Absolute Neuts (auto) 6.7 Neutrophils % 72.0 D Lymphocytes % 22.6 D Monocytes % 4.5 Eosinophils % 0.6 D Basophils % 0.3 Nucleated RBC % 0 Sodium 139 Potassium 3.7 Chloride 107 Carbon Dioxide 24 Anion Gap 9 BUN 10.7 Creatinine 0.4 L Est GFR (CKD-EPI)AfAm 163.13 Est GFR (CKD-EPI)NonAf 140.75 Random Glucose 95 Calcium 8.2 L Total Bilirubin 0.2 AST 14 L ALT 16 Alkaline Phosphatase 36 L Total Protein 6.8 Albumin 3.1 L Lipase 75 Urine Color Yellow Urine Appearance Clear Urine pH 7.5 D Ur Specific [place] 1.012 Urine Protein Negative Urine Glucose (UA) Negative Urine Ketones Negative Urine Blood Negative Urine Nitrite Negative Urine Bilirubin Negative Urine Urobilinogen 0.2 Ur Leukocyte Esterase 2+ H Urine WBC (Auto) 16 Urine RBC (Auto) 3 Urine Casts (Auto) 1 U Epithel Cells (Auto) 8.8 Urine Bacteria (Auto) 162.6 ASSESSMENT/PLAN: Pt is a 29 yo F 13 weeks presenting with hx of RUQ pain for 3 days #Acute Complicated UTI with pyelonephritis in Pt has flank pain and costovertebral angle tenderness in with positive UA Pt with nausea, unable to take PO meds for now Low risk for resistant orgs at this time Cont ceftriaxone Cont NS Iv hydration zofran for nausea Iv tylenol for pain 1 Monitor F/u ucx lovenox sc regular diet Medsurg Visit type - Emergency Visit Emergency Visit: Yes ED Registration Date: 09/02/19 Care time: The patient presented to the Emergency Department on the above date and was hospitalized for further evaluation of their emergent condition. - New Patient This patient is new to me today: Yes Date on this admission: 09/02/19 - Critical Care Critical Care patient: No ATTENDING PHYSICIAN STATEMENT I saw and evaluated the patient. I reviewed the resident's note and discussed the case with the resident. I agree with the resident's findings and plan as documented. SUBJECTIVE: OBJECTIVE: ASSESSMENT AND PLAN:
[2019-09-02] MEDS ORDERED: ONDANSETRON 4 MG/2 ML VIAL IVPUSH PRN (12:16)
[2019-09-02] MEDS ORDERED: ACETAMINOPHEN 325 MG TABLET (FP) PO PRN (12:24)
--- NOTE | 2019-09-02 13:21 | PN ---
Teaching Attending Note Name of Resident: Charlotte Thomas ATTENDING PHYSICIAN STATEMENT I saw and evaluated the patient. I reviewed the resident's note and discussed the case with the resident. I agree with the resident's findings and plan as documented. SUBJECTIVE:Pt is a 29 yo F 13 weeks presenting with hx of RUQ pain for 3 days. Pain is severe 10/10 radiating to R flank. Pt reports nausea, no vomiting, no fever,no chills. No burning on micturition, no vaginal bleeding or discharge. LMP-May 2019, [place]; Mar 13 2020. No leg swellings, no shortness of breath, no chest pain. Pt had C/section for first 04/2018 and had L labial abscess 04/2019. Not currently on any medications. Pt got vaginal and abd US done in ED which showed viable intrauterine at 13 weeks gestation. Pt had pansensitive cx to abscess in past. OBJECTIVE:O/E is comfortable nad alert awake oriented vss neck supple no jvd cvs s1/s2 chest ctab abd soft , mildly tender to deep palpation, no reboud, and BS+, ext no c/c/e neuro , non focal ASSESSMENT AND PLAN: Pt is a 29 yo F 13 weeks presenting with hx of RUQ pain for 3 days #Acute Complicated UTI with pyelonephritis in Pt has flank pain and costovertebral angle tenderness in with positive UA Pt with nausea, unable to take PO meds for now Low risk for resistant orgs at this time Cont ceftriaxone Cont NS Iv hydration zofran for nausea Iv tylenol for pain 1 Monitor F/u ucx lovenox sc regular diet Medsurg
[2019-09-02] MEDS ORDERED: ENOXAPARIN NA (PORCINE) 40 MG/0.4 ML DISP.SYRIN SQ ONE (13:27)
[2019-09-02] MEDS: ENOXAPARIN NA (PORCINE) 40 MG/0.4 ML DISP.SYRIN SQ SCH (13:37)
[2019-09-02] MEDS: SODIUM CHLORIDE 1,000 ML IV SCH (13:42)
[2019-09-02 20:44] VITALS: BMI 25.7
[2019-09-02] MEDS ORDERED: KETOROLAC TROMETHAMINE 15 MG/ML VIAL IVPUSH ONE (21:30)
[2019-09-03] MEDS ORDERED: KETOROLAC TROMETHAMINE 15 MG/ML VIAL IVPUSH ONE (06:15)
[2019-09-03] MEDS: SODIUM CHLORIDE 1,000 ML IV SCH ×2 (06:56→12:34)
[2019-09-03 09:32] VITALS: BP 118/67; PULSE 88; TEMP 97.9
[2019-09-03] MEDS ORDERED: CEFTRIAXONE 1 GM in DEXTROSE 5%-WATER - 50 ML IVPB SCH (10:00)
[2019-09-03 10:20] LABS: MCH 30.6 pg (25.7-33.7); MCHC 34.3 g/dl (32.0-36.0); MEAN CELL VOLUME 89.2 fl (80-96); MEAN PLT VOLUME 9.7 fl (7.5-11.1); PLATELET COUNT 190 K/MM3 (134-434); RBC 3.92 M/mm3 (3.60-5.2); RDW 13.1 % (11.6-15.6); WHITE BLOOD COUNT 9.3 K/mm3 (4.0-10.0)
[2019-09-03] MEDS ORDERED: cefTRIAXone SODIUM 1 GM VIAL ONE (10:35)
[2019-09-03] MEDS ORDERED: DEXTROSE 5%-WATER - 50 ML IVPB ONE (10:35)
[2019-09-03] MEDS: ENOXAPARIN NA (PORCINE) 40 MG/0.4 ML DISP.SYRIN SQ SCH (10:40)
[2019-09-03 10:59] LABS: BLOOD UREA NITROGEN 8.8 mg/dL (7-18); CREATININE 0.4 mg/dL (0.55-1.3); POTASSIUM 3.6 mmol/L (3.5-5.1)
--- NOTE | 2019-09-03 11:08 | CONSULT ---
Consult Consult Specialty:: OBGYN Reason for Consultation:: 13 weeks , UTI - History of Present Illness Chief Complaint: Flank pain History of Present Illness: 29yo @ 13.3wks by cody yesterday here with RUQ and flank pain x 4 days. Some dysuria. Recently treated for UTI in the office with a 10 day course of antibiotics. No VB/LOF. No cramping. No FM yet as expected. PNC @ [facility] OB History: 2018 PLTCS for failed IOL, 9.14lbs. No complications in that - History Source History Provided By: Patient - Past Medical History SQL CONSULTANT: No: Alzheimer's, CVA, Dementia, Migraine, Multiple Sclerosis, Peripheral Neuropathy, Parkinson's, Seizure, Syncope, TIA, Vertigo, Other Gastrointestinal: Yes: Gastritis (Zantac 150 mg bid) ...LMP: 06/02/19 ...: Yes ...: 2 ...Para: 1 Infectious Disease: Yes: Other (labial abscess) - Past Surgical History Past Surgical History: Yes: , Tonsillectomy (in child camacho) Additional Surgical History: Female Circumcision - Alcohol/Substance Use Hx Alcohol Use: No History of Substance Use: reports: None - Smoking History Smoking history: Never smoked Have you smoked in the past 12 months: No - Social History Usual Living Arrangement: With Spouse ADL: Independent History of Recent Travel: No (last 2 years ago) Home Medications - Allergies Allergies/Adverse Reactions: Allergies Allergy/AdvReac Type Severity Reaction Status Date / Time No Known Allergies Allergy Verified 09/02/19 02:35 - Home Medications Home Medications: Ambulatory Orders NK [No Known Home Medication] 09/02/19 Physical Exam Vital Signs: Vital Signs Temperature 97.9 F 09/03/19 09:31 Pulse Rate 88 09/03/19 09:31 Respiratory Rate 18 09/03/19 09:31 Blood Pressure 118/67 09/03/19 09:31 O2 Sat by Pulse Oximetry (%) 100 09/02/19 21:00 Constitutional: Yes: Well Nourished, No Distress, Calm Gastrointestinal: Yes: WNL, Soft Labs: CBC, BMP 09/03/19 09:50 09/03/19 09:50 Imaging - Results Ultrasound: Report Reviewed Assessment/Plan 29yo @ 13.3wks here with Flank pain, suspected. UTI Chart reviewed; pt afebrile and vitals normal Labs reviewed, no elevated WBC Urine with 2+ leuks only, 16WBC, large bacteria; urine culture NEGATIVE Rocephin IV has been given, can be discontinued. Discomfort she has experienced may not entirely be renal in nature, but should consider giving supression for future UTIs given recent bouts. PO course once daily and will reassess need going forward when she follows up in the office. Continue PNV while in house and upon discharge home Sono reviewed normal, no indication to repeat sono at this time. Doppler once a day is sufficient Follow up with OB as outpatient upon discharge- has appointment schedule Please call OB sharepoint solutions architect for [facility] if situation changes or with questions Mayuri Moran MD
--- NOTE | 2019-09-03 14:50 | PN ---
Teaching Attending Note Name of Resident: Kade Dave ATTENDING PHYSICIAN STATEMENT I saw and evaluated the patient. I reviewed the resident's note and discussed the case with the resident. I agree with the resident's findings and plan as documented. SUBJECTIVE: Patient states her pain has improved. Denies chest pain or sob OBJECTIVE: GENERAL: no acute distress CVS: S1 S2 irregular Lungs: clear to auscultation b/l no wheezing or crackles ABDOMEN: Soft, + mild tenderness to palpation on the R mid abdomen, +BS EXTREMITIES: no cyanosis or edema ASSESSMENT AND PLAN: 29 yo F 13 weeks w/ frequent UTIs presents w/ RUQ pain x 4DE # RUQ pain 2/2 suspected UTI - evaluated by ship fastener appreicate recs UA positive but urine culture negative. d/c rocephin. started on macrobid for suppression given recurrent UTIs per RESTAURANT KITCHEN MANAGER recs sono reviewed ob follow up outpatient d/c today
--- NOTE | 2019-09-03 15:08 | EKG ---
Test Reason : Blood Pressure : / mmHG Vent. Rate : 070 BPM Atrial Rate : 070 BPM P-R Int : 160 ms QRS Dur : 094 ms QT Int : 402 ms P-R-T Axes : 042 -22 015 degrees QTc Int : 434 ms NORMAL SINUS RHYTHM CANNOT RULE OUT ANTERIOR INFARCT , AGE UNDETERMINED ABNORMAL ECG WHEN COMPARED WITH ECG OF 21-MAY-2019 00:14, NONSPECIFIC T WAVE ABNORMALITY NO LONGER EVIDENT IN LATERAL LEADS Confirmed by RADHA CARDENAS, EMEKA ([id number]) on 09/03/2019 3:07:34 PM Referred By: Confirmed By:EMEKA GARCIA MD
--- NOTE | 2019-09-03 15:15 | DS ---
Physical Exam: SUBJECTIVE: Patient seen and examined at bedside. Reports mild nausea and some abdominal pain. OBJECTIVE: Vital Signs Period Temp Pulse Resp BP Sys/Spring Pulse Ox Last 24 Hr 97.9 F-98.8 F 77-98 18-18 101-127/54-75 100 PHYSICAL EXAM GENERAL: A&Ox3, no acute distress EYES: PERRLA, EOMI ENT: Moist mucus membranes NECK: No JVD LUNGS: CTA, no wheezes HEART: RRR, no murmurs ABDOMEN: Soft, nontender, BS present MUSCULOSKELETAL: mild R sided CVA tenderness EXTREMITIES: 2+ pulses, no edema. NEUROLOGICAL: Cranial nerves II-XII intact. LABS Laboratory Results - last 24 hr 09/03/19 09/03/19 09:50 09:50 WBC 9.3 RBC 3.92 Hgb 12.0 Hct 35.0 MCV 89.2 MCH 30.6 MCHC 34.3 RDW 13.1 Plt Count 190 MPV 9.7 Sodium 139 Potassium 3.6 Chloride 108 H Carbon Dioxide 23 Anion Gap 8 BUN 8.8 Creatinine 0.4 L Est GFR (CKD-EPI)AfAm 163.13 Est GFR (CKD-EPI)NonAf 140.75 Random Glucose 97 Calcium 8.0 L HOSPITAL COURSE: Date of Admission:09/02/19 Pt is a 29 yo F 13 weeks presenting with hx of RUQ pain for 3 days, recently finished treatment with ABX for UTI. Started on IV ceftriaxone. Urinalysis was weakly positive for UTI, however culture returned negative. The following day, OB saw patient and recommended discharge on longer term macrobid as vitals and labs remained stable. Patient to follow for routine health and well visit with OB tomorrow. Date of Discharge: 09/03/19 Minutes to complete discharge: 35 Discharge Summary Problems reviewed: Yes Reason For Visit: ABD PAIN, 12 WEEKS Condition: Improved - Instructions Diet, Activity, Other Instructions: You were admitted to the hospital for treatment of urinary tract infection Regular Diet Please take the antibiotic once a day as prescribed until you are seen by Dr. Adams in the office TOMORROW You may take Tylenol as need for discomfort If you experience severe pain, nausea, vomiting, diarrhea, fevers, chills, diarrhea, please return to the hospital immediately Referrals: Kendall Adams MD [Staff Physician] - (tomorrow) Disposition: HOME - Home Medications Comprehensive Discharge Medication List: Ambulatory Orders Nitrofurantoin Monohyd/M-Cryst [Macrobid -] 100 mg PO DAILY 21 Days #21 capsule 09/03/19 This patient is new to me today: No Emergency Visit: No Critical Care patient: No - Discharge Referral Referred to [facility] Med [facility] No ATTENDING PHYSICIAN STATEMENT I saw and evaluated the patient. I reviewed the resident's note and discussed the case with the resident. I agree with the resident's findings and plan as documented. SUBJECTIVE: OBJECTIVE: ASSESSMENT AND PLAN:
== END 2019-09-03 13:34 | disposition home or self-care (01) | DRG 566 ==
LOC: JER 01:33 → JERBED 11:02 → J5S 14:29
PROVIDERS: ADMIT Internal Medicine; ATTEND Internal Medicine
DX: O23.01 Infections of kidney in pregnancy, first trimester (principal); Z3A.13 13 weeks gestation of pregnancy
CPT/HCPCS: 36415; 76700-TC; 76775-TC; 76801-TC; 76856-TC; 80048; 80053; 81003; 83690; 85025; 85027; 87086; 93005; 93010; 99285-25; J0131; J7030

== ENCOUNTER 2020-03-07 11:00 | Inpatient (IN) | payer OTHER ==
--- OUTSIDE RECORDS SUMMARY | 2020-03-07 11:37 | XMS ---
:1990 Author Organization [facility] Support Name Relationship Address Phone UE, UNEMPLOYED Unavailable Unavailable Unavailable UE Unavailable Unavailable Unavailable FEDERICO CLAY [address] [place] [address] FEDERICO CLAY Spouse [address] [place] [address] Re-disclosure Warning The records that you are about to access may contain information from federally- assisted alcohol or drug abuse programs. If such information is present, then the following federally mandated warning applies: This information has been disclosed to you from records protected by federal confidentiality rules (42 CFR part 2). The federal rules prohibit you from making any further disclosure of this information unless further disclosure is expressly permitted by the written consent of the person to whom it pertains or as otherwise permitted by 42 CFR part 2. A general authorization for the release of medical or other information is NOT sufficient for this purpose. The Federal rules restrict any use of the information to criminally investigate or prosecute any alcohol or drug abuse patient.The records that you are about to access may contain highly sensitive health information, the redisclosure of which is protected by Article 27-F of the [facility] Public Health law. If you continue you may haveaccess to information: Regarding HIV / AIDS; Provided by facilities licensed or operated by the [facility] Office of Mental Health; or Provided by the [facility] Office for People With Developmental Disabilities. If such information is present, then the following [facility] mandated warning applies: This information has been disclosed to you from confidential records which are protected by state law. State law prohibits you from making any further disclosure of this information without the specific written consent of the person to whom it pertains, or as otherwise permitted by law. Any unauthorized further disclosure in violation of state law may result in a fine or fdc sentence or both. A general authorization for the release of medical or other information is NOT sufficient authorization for further disclosure. Insurance Providers Payer name Policy type Policy ID Covered Covered democrat's Policy P clara / Coverage democrat ID relationship to Dia Inf ormation type dia NASIR [id number] HEALTH NON CAP MEDICAID [id number] SP [id number] NASIR [id number] 600 ESSENTIAL PLAN 3 4 MEDICAID [id number] SP [id number] [facility] [id number] HEALTH NON CAP Results ID Date Data Source [id number] 03/04/2020 12:35:00 PM EDT [facility] Name Value Range Interpretation Description Data Sup porting Code Source(s) Document(s ) SARS [facility] coronavirus 2 RNA This lab was ordered by [facility] and reported by [facility]. Procedure
[2020-03-07] MEDS ORDERED: CITRIC ACID/SODIUM CITRATE 30 ML UNIT-DOSE CUP PO ONE (12:13)
[2020-03-07] MEDS ORDERED: morphine SULFATE/PF 0.5 MG/ML (2cc Syringe - QUVA) ONE (12:15)
[2020-03-07] MEDS ORDERED: ELECTROLYTE-148 SOLN 1,000 ML IV SCH ×2 (12:15)
--- NOTE | 2020-03-07 12:23 | HP ---
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: No: Alzheimer's, CVA, Dementia, Migraine, Multiple Sclerosis, Peripheral Neuropathy, Parkinson's, Seizure, Syncope, TIA, Vertigo, Other Cardiovascular: No: AFIB, Aneurysm, Aortic Insufficiency, Aortic Stenosis, CAD, CHF, Deep Vein Thrombosis, HTN, Hyperlipdemia, MA, Mitral Insufficiency, Mitral Stenosis, Murmur, Pulmonary Hypertension, Other Pulmonary: No: Asthma, Bronchitis, Cancer, COPD, O2 Dependent, Pneumonia, Previously Intubated, Pulmonary Embolus, Pulmonary Fibrosis, Sleep Apnea, Other Gastrointestinal: Yes: Gastritis (Zantac 150 mg bid) Hepatobiliary: No: Cirrhosis, Cholelithiasis, Cholecystitis, Choledocholithiasis, Hepatitis A, Hepatitis B, Hepatitis C, Other Renal/: No: Renal Failure, Renal Inusuff, BPH, Cancer, Hematuria, Hemodialysis, Neurogenic Bladder, Renal Calculi, UTI, Other Reproductive: No: Ectopic , Endometriosis, Fibroids, PID, Polycystic Ovary Syndrome, Postmenopausal, Other ...: 2 ...Para: 1 ...Term: 1 ...: 0 ...Spon : 0 ...Induced : 0 ...Living Children: 1 ...Multiple Gestation: 0 ...LMP: 05/30/19 ... Weeks Gestation by Dates: 40.2 ...EDC by Dates: 03/05/20 ...EDC by Sono: 03/13/20 Heme/Onc: No: Anemia, B12 Deficiency, Bleeding Disorder, Cancer, Current Chemotherapy, Current Radiation Therapy, Hemochromatosis, Hypercoaguable State, Myeloproliferative Synd, Sickle Cell Disease, Sickle Cell Trait, Thrombocytopenia, Other Infectious Disease: Yes: Other (h/o labial abscess) Psych: No: Addictions, Anxiety, Bipolar, Depression, Panic, Psychosis, Schizophrenia, Other Musculoskeletal: No: Bursitis, Chronic low back pain, Hemiparesis, Hemiplegia, Osteoarthritis, Paraplegia, Other Rheumatology: No: Fibromyalgia, Gout, Lupus, Rheumatoid Arthritis, Sarcoidosis, Vasculitis, Other ENT: No: Allergic Rhinitis, Sinusitis, Other Endocrine: No: Musselshell's Disease, Linda's Disease, Diabetes Insipidus, Diabetes Mellitus, Hyperparathyroidism, Hyperthyroidism, Hypothyroidism, Osteopenia, SIADH, Other Dermatology: No: Basal Cell, Cellulitis, Eczema, Melanoma, Psoriasis, Squamous Cell, Other - Past Surgical History Past Surgical History: Yes: , Tonsillectomy (in child camacho) Hx Myomectomy: No Hx Transabdominal Cerclage: No - Smoking History Smoking history: Never smoked Have you smoked in the past 12 months: No - Alcohol/Substance Use Hx Alcohol Use: No History of Substance Use: reports: None - Social History ADL: Independent History of Recent Travel: No (last 2 years ago) Home Medications - Allergies Allergies/Adverse Reactions: Allergies Allergy/AdvReac Type Severity Reaction Status Date / Time No Known Allergies Allergy Verified 03/07/20 11:56 - Home Medications Home Medications: Ambulatory Orders Vitamins (Sjr) - 1 tab PO DAILY 03/07/20 Family Medical History Family History: Unremarkable Family Hx Diabetes: Mother, Father Family Hx Nuerologic Problems: Mother, Father (strokes) Review of Systems Findings/Remarks: nervous - Review of Systems Constitutional: reports: No Symptoms Eyes: reports: No Symptoms HENT: reports: No Symptoms Neck: reports: No Symptoms Cardiovascular: reports: No Symptoms Respiratory: reports: No Symptoms Gastrointestinal: reports: No Symptoms Genitourinary: reports: No Symptoms Breasts: reports: No Symptoms Reported Musculoskeletal: reports: No Symptoms Integumentary: reports: No Symptoms Neurological: reports: No Symptoms Endocrine: reports: No Symptoms Hematology/Lymphatic: reports: No Symptoms Psychiatric: reports: No Symptoms Physical Exam - Maternity Vital Signs: Vital Signs Temperature 98.8 F 03/07/20 11:00 Pulse Rate 88 03/07/20 11:00 Respiratory Rate 18 03/07/20 11:00 Blood Pressure 129/77 03/07/20 11:00 O2 Sat by Pulse Oximetry (%) Constitutional: Yes: Well Nourished HENT: Yes: Atraumatic Cardiovascular: Yes: Regular Rate and Rhythm - Abdominal Exam/OB Number of Fetuses: Single Presentation: Vertex Contractions: Yes Regularity: Irritability Intensity: Unaware Monitor Mode: External Heart Rate (range): 145 Category: I Accelerations: Uniform Decelerations: None - Vaginal Exam/OB Vaginal Bleeding: No Speculum Exam: No Presentation: Vertex/Position Station: -3 - Physical Exam Musculoskeletal: Yes: WNL Extremities: Yes: WNL Edema: Yes Edema: LLE: Trace, RLE: Trace Integumentary: Yes: WNL Deep Tendon Reflex Grade: Normal +2 ...Motor Strength: WNL Psychiatric: Yes: Alert, Oriented Imaging - Results Ultrasound: Report Reviewed Assessment/Plan 29 y/o @ 39.1wks, prior C/S x 1 desiring repeat, risks and complications discussed, +GDS and -GTT, H/O female circumcision, h/O labial minora abscess and I&D, umang-umbilical hernia and surgery consult declined. Informed consent obtained -Proceed as scheduled.
[2020-03-07] MEDS ORDERED: ceFAZolin SODIUM 1 GM VIAL ONE (12:26)
--- NOTE | 2020-03-07 12:37 | OP ---
Operative Note - Note: Operative Date: 03/07/20 (#[id number]) Pre-Operative Diagnosis: repeat C/S at term Operation: Repeat C/S Findings: see dictation Post-Operative Diagnosis: Same as Pre-op Surgeon: Kendall Adams Correction Officer [facility]: Salvador L[facility]pez Anesthesia: Spinal Specimens Removed: skin scar Estimated Blood Loss (mls): 700 Operative Report Dictated: Yes
[2020-03-07] MEDS ORDERED: ePHEDrine SULFATE 50 MG/1 ML AMPULE ONE (12:42)
[2020-03-07] MEDS ORDERED: OXYTOCIN 20 UNITS in 0.9% NS 20 UNIT/1,000 ML INFUS.BAG IV ONE ×2 (12:47→14:03)
[2020-03-07] MEDS ORDERED: ONDANSETRON 4 MG/2 ML VIAL IVPUSH PRN (13:33)
[2020-03-07] MEDS ORDERED: morphine SULFATE/PF 0.5 MG/ML (2cc Syringe - QUVA) EP ONE (13:33)
--- NOTE | 2020-03-07 14:41 | OP ---
DATE OF OPERATION: 03/07/2020 PREOPERATIVE DIAGNOSIS: A 29-year-old 2, para 1 at 39 and 1 weeks of gestation, prior section desiring repeat, requesting skin and scar tissue removal. POSTOPERATIVE DIAGNOSIS: A 29-year-old 2, para 1 at 39 and 1 weeks of gestation, prior section desiring repeat, requesting skin and scar tissue removal. PROCEDURE: Repeat low transverse section, section scar excision. SURGEON: Whitney Bustamante MD ADMITTANCE ATTENDANT: TAVO Simmons ANESTHESIA: Spinal. ESTIMATED BLOOD LOSS: For the procedure 700 mL. IV FLUIDS: Two L of crystalloids. URINE OUTPUT: Clear. COMPLICATIONS: None. SPECIMEN: Placenta and skin scar. FINDINGS: Fibrotic right scar edge, moderate amount of subcutaneous adipose tissue. The fascia was fibrotic and adherent to the underlying rectus muscles. The rectus muscles were fused to each other in the midline. No parietal peritoneal visceral adhesions at the point of entry. The lower uterine segment was effaced. in cephalic presentation with clear amniotic fluid. No nuchal cord. Bilateral tubes and ovaries consistent with normal anatomy. Bladder dome and rectus muscle fascial interface intact. PROCEDURE: The patient was taken to the operating room where anesthesia was found to be adequate. She was then prepped and draped in a normal sterile fashion. A Darnell catheter was placed atraumatically. Appropriate timeout took place. Pfannenstiel skin incision was made with the scalpel following the inferior edge of the scar. The incision extended and incision carried down to the underlying fascia with the Bovie. The fascia was incised in the midline and the incision extended laterally with sharp dissection. The underlying rectus muscles were dissected off sharply. The rectus muscles were elevated and transected with the blade. Incidental entry to the peritoneal cavity revealed no visceral adhesions at the point of entry. The incision was extended superiorly and inferiorly without difficulty with sharp dissection. Bladder blade was placed and the lower uterine segment as previously mentioned. Transverse lower uterine segment incision was made with a scalpel, extended laterally with blunt and sharp dissection. Amniotomy revealed clear amniotic fluid. in cephalic presentation, ROT, elevated to the surgical incision and delivered through the surgical incision with mild fundal pressure without difficulty. Infant was handed off to the waiting NICU staff after delayed cord clamp. The placenta was delivered manually and intact. The uterus was exteriorized through the surgical incision and the intrauterine cavity was cleared of all clots and debris. The lower uterine segment incision was reapproximated with 1-0 Polysorb running locked suture. Excellent reapproximation with 1 layer suture. [id number] stitch of the same suture was required in the midline to neutralize minimal oozing. The uterus was internalized to the pelvic cavity and gutters were cleared of clots and debris. Secondary inspection of the incision revealed excellent hemostasis. Bladder dome and rectus muscle fascial interface was examined. Rectus muscles were reapproximated manually and the fascial incision was reapproximated with 0 Polysorb running nonlocked suture. Excellent structural reapproximation achieved and confirmed by digital palpation by the surgeon. Subcutaneous tissues were copiously irrigated and bleeders neutralized with Bovie cautery. The skin scar tissue was removed with sharp dissection with a combination of a knife and Bovie. Specimen was sent to Pathology. The skin edges were reapproximated with surgical remedios. The patient tolerated the procedure well and is going to the recovery room in stable condition. Instrument count was reported as correct x2 by the staff. WHITNEY BUSTAMANTE MD [id number]
[2020-03-07] MEDS: IBUPROFEN 800 MG/8 ML IJ IVPB PRN ×2 (15:05→23:17)
[2020-03-07] MEDS ORDERED: IBUPROFEN 800 MG/8 ML IJ IVPB ONE (15:05)
[2020-03-07] MEDS ORDERED: OXYTOCIN 20 UNITS in 0.9% NS 20 UNIT/1,000 ML INFUS.BAG IV SCH (16:30)
[2020-03-08] MEDS: SIMETHICONE 80 MG TAB.CHEW (FP) PO PRN ×2 (05:54→20:38)
[2020-03-08] MEDS: ACETAMINOPHEN 325 MG TABLET (FP) PO PRN ×2 (05:54→13:36)
[2020-03-08] MEDS: IBUPROFEN 600 MG TABLET (FP) PO PRN ×3 (05:55→20:39)
--- NOTE | 2020-03-08 07:47 | PN ---
Post Progress Note - Subjective Subjective: Not yet ambulating, tolerating PO, lochia decreased, no nousea/vomiting Post Day: 1 Type of Delivery: Repeat C/S Vital Signs: Vital Signs Temperature 98.4 F 03/08/20 06:00 Pulse Rate 72 03/08/20 06:00 Respiratory Rate 20 03/08/20 07:00 Blood Pressure 110/60 03/08/20 06:00 O2 Sat by Pulse Oximetry (%) 99 03/08/20 06:00 Breast Exam: Yes: Other Uterus: Yes: Fundus Firm Incision: Yes: Dressing dry and intact (removed), Vick intact Abdomen/GI: Yes: Abdomen soft Lochia, amount: Moderate Extremities: Yes: Calves non-tender Perineum: Yes: Intact Activity: Other Assessment/Plan 29 y/o on POD #1 S/P RLTCS in stable condition -Encourage ambulation -Advance diet -F/U AM CBC
[2020-03-08 08:15] LABS: BASO % 0.4 % (0-2.0); EOS % 0.7 % (0-4.5); HEMATOCRIT 34.1 % (32.4-45.2); HEMOGLOBIN 11.4 GM/dL (10.7-15.3); LYMPH % 9.7 % (8-40); MCH 29.8 pg (25.7-33.7); MCHC 33.5 g/dl (32.0-36.0); MEAN PLT VOLUME 10.3 fl (7.5-11.1); MONO % 7.5 % (3.8-10.2); NEUT % 81.7 % (42.8-82.8); PLATELET COUNT 140 K/MM3 (134-434); RBC 3.84 M/mm3 (3.60-5.2); RDW 13.7 % (11.6-15.6); WHITE BLOOD COUNT 9.5 K/mm3 (4.0-10.0)
--- NOTE | 2020-03-08 08:35 | PN ---
Progress Note (short form) - Note Progress Note: Anesthesiologist pot op note, POD#1. S/P repeat under spinal anesthesia with duramorph. Pat seen and examined. VSS. Pain well contrilled. 08/03. Moving all extremities. No apparent post anesthesia complications.
[2020-03-08] MEDS: oxyCODONE HCL 5 MG TABLET PO PRN ×2 (10:40→20:39)
[2020-03-08] MEDS ORDERED: DIPHTH,PERTUSS(ACELL),TET 0.5 ML DISP.SYRIN IM ONE ×2 (11:00→11:30)
[2020-03-08] MEDS ORDERED: BISACODYL 10 MG SUPP.RECT RC PRN (12:23)
[2020-03-09] MEDS: ACETAMINOPHEN 325 MG TABLET (FP) PO PRN ×3 (02:07→11:30)
[2020-03-09] MEDS: IBUPROFEN 600 MG TABLET (FP) PO PRN ×3 (02:08→11:30)
[2020-03-09] MEDS: oxyCODONE HCL 5 MG TABLET PO PRN ×2 (02:08→13:43)
[2020-03-09] MEDS: SIMETHICONE 80 MG TAB.CHEW (FP) PO PRN (02:09)
--- NOTE | 2020-03-09 08:33 | DS ---
Physical Exam-HEAD TRANSFER CLERK Vital Signs: Vital Signs Temperature 98.4 F 03/08/20 22:00 Pulse Rate 83 03/08/20 22:00 Respiratory Rate 18 03/08/20 22:00 Blood Pressure 111/71 03/08/20 22:00 O2 Sat by Pulse Oximetry (%) 99 03/08/20 06:00 Constitutional: Yes: Well Nourished, Other (c/o pain 4/10) Eyes: Yes: WNL HENT: Yes: WNL Neck: Yes: WNL Cardiovascular: Yes: WNL Respiratory: Yes: WNL Gastrointestinal: Yes: WNL, Normal Bowel Sounds, Soft, Other (tolerating diet well) Renal/: Yes: WNL, Other (voiding without difficulty) ....Post : Yes: Uterus firm (below umblicus), Uterus non-tender, Moderate lochia rubra Breast(s): Yes: WNL (lactating , breast not engorged) Musculoskeletal: Yes: WNL Extremities: Yes: WNL. No: Calf Tenderness Edema: LLE: Trace, RLE: Trace Wound/Incision: Yes: Clean/Dry, Well Approximated, Remedios Intact, Open to air. No: Draining, Reddened, Bleeding Neurological: Yes: WNL, Alert, Oriented ...Motor Strength: WNL Psychiatric: Yes: WNL, Alert, Oriented Labs: CBC, BMP 03/08/20 07:30 Delivery - Delivery Type of Anesthesia: Spinal Episiotomy/Laceration: None EBL (cc): 700 Delivery, Single - Stages of Labor Date of Delivery: 03/07/20 Time of Delivery: 12:55 Time Placenta Delivered: 12:56 - Condition of Infant Automotive Quality Engineer/Mine Engineering Superintendent Present: No Infant Gender: Female Weight: 8 lb 3 oz Position: Right, OT Total Hours ROM (Hrs/Mins): 2mins - 1 Minute Total Score: 9 5 Minutes Total Score: 9 - [place] Feeding Plan Initial Plan: Elected not to breastfeed exclusively throughout hospitalization Remarks - Remarks Remarks: post op course uneventful. pt requests discharge today. she will rtc for remedios removal within 1 wk Discharge Summary Problems reviewed: Yes Current Active Problems with 39 completed weeks gestation (Acute) Previous section (Acute) Condition: Stable - Instructions Diet, Activity, Other Instructions: Please return to regular diet as tolerated, refrain from strenuous activity until cleared by MD, follow up within a week of discharge for incision check, take medications as prescribed, call MD with any questions or concerns. RTC 1 week for remedios removal Referrals: Kendall Adams MD [Staff Physician] - Disposition: HOME - Home Medications Comprehensive Discharge Medication List: Ambulatory Orders Acetaminophen [Tylenol] 650 mg PO Q6H PRN #30 capsule MDD 5 03/07/20 Ibuprofen 600 mg PO Q6H PRN #30 tablet 03/07/20 Miscellaneous Medical Supply [Electronic Breast Pumo] 1 each NR ASDIR #1 unit 03/07/20 Oxycodone HCl [Roxicodone] 5 mg PO Q6H PRN #14 tablet MDD 5 03/07/20 Vitamins (Sjr) - 1 tab PO DAILY 03/07/20
[2020-03-09 10:43] VITALS: BP 116/73; PULSE 69; TEMP 98
--- NOTE | 2020-03-10 11:03 | PATH ---
Surgical Pathology Report Patient Name: JOVANNA CLAY [place]. Rec. #: [id number] /Age/Gender: 1990 (Age: 29) / F Account: [id number] Location: [facility] OBS/SURGERY CONSULTANT Taken: 03/07/2020 Received: 03/08/2020 Reported: 03/10/2020 Physicians: Kendall Adams MD Specimen(s) Received A: PLACENTA B: SCAR Clinical History , previous , 2018 Female circumcision, tonsillectomy Final Diagnosis A. PLACENTA, SECTION: 672 G THIRD TRIMESTER PLACENTA WITH FOCAL INCREASED PERIVILLOUS FIBRIN DEPOSITION, TRIVASCULAR UMBILICAL CORD, AND UNREMARKABLE PLACENTAL MEMBRANES. B. SCAR, EXCISION: SKIN WITH DERMAL SCAR. Electronically Signed Maddi Sigala M.D. Gross Description A. The specimen is received fresh labeled placenta and is a 672 gram, 19 x 17 x 1.5 cm. placenta with attached membranes and umbilical cord. The attached membranes are fall, translucent and insert marginally. The umbilical cord measures 42 cm. in length and averages 1.2 cm. in diameter. The cord inserts eccentrically, 5 cm. to the nearest margin. No true knots or strictures are identified. Cut surface of the umbilical cord reveals 3 vessels. The surface is summers-blue with minimal fibrin deposition and appropriate caliber vessels. The maternal surface is red-brown with focal defects. Sectioning reveals a 2 cm fall lesion. The remainder of the parenchyma is red-brown and spongy. Brick Cleaner sections are submitted in 5 cassettes as follows: 1- membrane rolls and umbilical cord; 2-3- full thickness sections of placenta; 4-5- lesion. B. Received fresh labeled " scar" is an ellipse of fall skin measuring 9 x 0.5 cm, excised to a depth of 0.5 cm. A well healed linear scar traverses the surface of the specimen. Brick Cleaner sections are submitted in one cassette. MLSZ/03/08/2020 san/03/08/2020
== END 2020-03-09 14:10 | disposition home or self-care (01) | DRG 540 ==
LOC: JLDR 11:00 → J3W 15:40
PROVIDERS: ADMIT Student in an Organized Health Care Education/Training Program; ATTEND Student in an Organized Health Care Education/Training Program
PROC: 10D00Z1 Extraction of Products of Conception, Low, Open Approach (ICD-10-PCS; principal; 2020-03-07)
PROC: 0HB7XZZ Excision of Abdomen Skin, External Approach (ICD-10-PCS; 2020-03-07)
DX: O34.211 Maternal care for low transverse scar from previous cesarean delivery (principal); Z3A.39 39 weeks gestation of pregnancy; Z37.0 Single live birth
CPT/HCPCS: 36415; 85025; 88304-TC; 88307-TC; 90715